=== PATIENT | male | born 1955 | race Caucasian/White ===

== ENCOUNTER 2016-11-21 10:18 | Inpatient (IN) ==
[2016-11-21] MEDS ORDERED: MYLANTA/LIDO VISC 2:1 300 ML BOTTLE SWISH/SPIT PRN (10:23)
[2016-11-21] MEDS ORDERED: LACTULOSE 20 GM/30 ML UDCUP PO PRN (10:23)
[2016-11-21] MEDS ORDERED: guaiFENesin 200 MG/10 ML UDCUP PO PRN (10:23)
[2016-11-21] MEDS ORDERED: ALUMINUM/MAGNES/SIMETH MAX STR 30 ML UDCUP PO PRN (10:23)
[2016-11-21] MEDS ORDERED: BENZTROPINE 2 MG/2 ML AMP IV PRN (10:23)
[2016-11-21] MEDS ORDERED: chlorproMAZINE INJ 25 MG in SODIUM CHLORIDE 0.9% 100 ML IV PRN (10:23)
[2016-11-21] MEDS ORDERED: chlorproMAZINE INJ 50 MG in SODIUM CHLORIDE 0.9% 100 ML IV PRN (10:23)
[2016-11-21] MEDS ORDERED: MYLANTA/LIDO VISC 2:1 300 ML BOTTLE SWISH/SWAL PRN (10:23)
[2016-11-21] MEDS ORDERED: ACETAMINOPHEN 325 MG TABLET PO PRN (10:23)
[2016-11-21] MEDS ORDERED: traMADol 50 MG TABLET PO PRN (10:23)
[2016-11-21] MEDS ORDERED: diphenhydrAMINE CAP 25 MG CAPSULE PO PRN (10:23)
[2016-11-21] MEDS ORDERED: LOPERAMIDE 2 MG CAPSULE PO PRN ×2 (10:23)
[2016-11-21] MEDS ORDERED: PROMETHAZINE INJ 25 MG in SODIUM CHLORIDE 0.9% 50 ML IV PRN (10:23)
[2016-11-21] MEDS ORDERED: MAGNESIUM HYDROXIDE SUSP 30 ML UDCUP PO PRN (10:23)
[2016-11-21] MEDS ORDERED: chlorproMAZINE 25 MG TABLET PO PRN (10:23)
[2016-11-21 11:11] LABS: Basophils % 0.4 % (0.0-0.8); Eosinophils % 0.2 % (0.00-10.9); Hematocrit 44.7 VOL% (42.0-52.0); Hemoglobin 15.1 GM/DL (14.0-18.0); Immature Granulocytes % 0.7 %; Immature Granulocytes Absolute 0.06 #; Lymphocytes # 0.1 10*3/uL (1.4-4.0); Lymphocytes % 1.2 % (21.2-54.2); Mean Corpuscular HGB Conc 33.8 GM/DL (32-36); Mean Corpuscular Hemoglobin 30 PG (27-34); Mean Corpuscular Volume 88.7 FL (87-102); Mean Platelet Volume 8.6 FL (9.6-12.0); Monocytes # 0.4 10*3/uL (0.11-0.8); Monocytes % 4.7 % (1.7-12.7); Neutrophils # 7.7 10*3/uL (1.4-7.4); Neutrophils % 92.8 % (38.7-73.9); Platelet Count 347 10*3/uL (130-400); Red Blood Count 5.04 10*6/uL (3.8-5.5); Red Cell Distribution Width 12.8 % (9.3-17.3); White Blood Count 8.3 10*3/uL (4.5-13.71)
[2016-11-21 11:22] LABS: INR 1.1
[2016-11-21] MEDS ORDERED: SODIUM CHLORIDE 0.9% 1,000 ML IV ONE (11:36)
[2016-11-21 11:46] LABS: Band Neutrophils 16 % (0-10); Eosinophils 1 % (0-10); Hypochromasia Slight; Lymphocytes 1 % (20-55); Metamyelocytes 1 %; Microcytosis 1+; Segmented Neutrophils 78 % (50-85); Total Cells Counted 100
[2016-11-21 11:47] LABS: Platelet Estimate Normal
[2016-11-21 11:59] LABS: Bilirubin,Total 1.5 MG/DL (0.2-1.0); Calcium 8.9 MG/DL (8.5-10.1); Magnesium 2.8 MG/DL (1.8-2.4); Potassium 5.3 MMOL/L (3.5-5.1); Total Protein 5.1 G/DL (6.4-8.3); Uric Acid 8.5 MG/DL (3.5-7.2)
[2016-11-21] MEDS: PANTOPRAZOLE 40 MG VIAL IV SCH (12:29)
[2016-11-21] MEDS ORDERED: FOSAPREPITANT 150 MG in SODIUM CHLORIDE 0.9% 100 ML IV ONE (12:55)
[2016-11-21] MEDS ORDERED: DEXAMETHASONE INJ 20 MG in SODIUM CHLORIDE 0.9% 50 ML IV ONE (12:55)
[2016-11-21] MEDS ORDERED: FAMOTIDINE 20 MG/2 ML VIAL IV ONE (13:00)
[2016-11-21] MEDS ORDERED: diphenhydrAMINE 50 MG/1 ML VIAL IV ONE (13:00)
[2016-11-21] MEDS ORDERED: PALONOSETRON 0.25 MG/5 ML VIAL IV ONE (13:00)
[2016-11-21] MEDS ORDERED: riTUXimab 750 MG in SODIUM CHLORIDE 0.9% 675 ML IV ONE (13:30)
[2016-11-21] MEDS: ALLOPURINOL 300 MG TABLET PO SCH (14:21)
[2016-11-21] MEDS ORDERED: riTUXimab 500 MG, riTUXimab 250 MG in SODIUM CHLORIDE 0.9% 675 ML IV ONE (16:00)
--- NOTE | 2016-11-21 17:03 | Oncology History&Physical ---
Assessment and Plan (1) Lymphoma Status: Acute Assessment and plan: Mr. Gonzalez is quite ill. We will aggressively rehydrate him and begin Rituxan today. His also severely malnourished and we will likely start peripheral nutrition tomorrow. I will try to get a PICC line placed and ask interventional radiology for paracentesis. Once he appears to be better hydrated we will start cytotoxic chemotherapy. I hope to have this going in the next 2 days. I had a length discussion with his and explained to them that I anticipate he'll be in the hospital for quite some time. His prognosis is guarded at this time but he has stated that he would like to be DNR if he worsens. Current Visit: Yes (2) Ascites Status: Acute Current Visit: Yes (3) Peritoneal carcinomatosis Status: Acute Current Visit: Yes (4) Lung metastases Status: Acute Current Visit: Yes (5) Malnutrition Status: Acute Current Visit: Yes History of Present Illness History of present illness: Mr. Gonzalez is a 61 year old male with newly diagnosed aggressive lymphoma with diffuse involvement based on his PET scan done yesterday and rapid deterioration over the last 2 weeks. He is taking in very little by mouth and is severely dehydrated. I admitted him from clinic today to begin chemotherapy due to his rapid deterioration. We are also doing aggressive rehydration. He is getting Rituxan today and I will likely hold off on cytotoxic chemotherapy for the next day or 2 while we improve his hydration status. His abdomen is severely distended. There is some ascites seen on his PET scan there is also diffuse peritoneal and omental involvement with tumor. I've had a lengthy discussion with Mr. Gonzalez and his and they're aware of his grave situation. He does not want to be placed on life support if it comes of that but he is willing to see if chemotherapy can turn around his current situation. Home Medications Medication Instructions Recorded Confirmed Type Aspirin EC Tab 81 mg PO BEDTIME 11/03/16 11/21/16 History Dexlansoprazole [Dexilant] 60 mg PO BEDTIME 11/03/16 11/21/16 History Finasteride [Proscar] 5 mg PO BEDTIME 11/03/16 11/21/16 History Nebivolol [Bystolic] 5 mg PO BEDTIME 11/03/16 11/21/16 History Tamsulosin [Flomax] 0.4 mg PO BEDTIME 11/03/16 11/21/16 History Ondansetron HCl [Zofran Tab] 8 mg PO Q8HR PRN 11/21/16 11/21/16 History Ondansetron Odt Tab [Zofran Odt] 4 mg PO Q6H PRN 11/21/16 11/21/16 History Promethazine Tab [Phenergan Tab] 25 mg PO Q6H PRN 11/21/16 11/21/16 History traMADol TAB [Ultram] 50 mg PO Q6H PRN 11/21/16 11/21/16 History Allergies Allergy/AdvReac Type Severity Reaction Status Date / Time No Known Allergies Allergy Verified 11/19/16 09:34 Medical,Surgical,& Family Hx - Medical History Cardio: History of: Hypertension Psychological: No history of: Anxiety Disorders, Bipolar Disorder, Depression, Schizophrenia Neurology: History of: Vertigo No history of: Seizures HEENT: History of: Eye Problem (Wears glasses) Genitourinary: History of: Kidney Stones, Prostate Problems (Enlarged prostate) Gastrointestinal: History of: GERD, Liver Problems (Fatty Liver), GI Problems ( Abdominal pain; Abnormal CT scan) Musculoskeletal: History of: Degenerative Disk Disease (L1 L2) Reproductive: No histroy: Reproductive Cancer Other: History of: Cancer (RIGHT kidney) No history of: Anesthesia Reactions - Surgical History Cardiac Surgeries: Patient Denies: Cardiac Catheterization Thoracic Surgeries: Surgical HX of;: Nephrectomy (RIGHT partial 5 years ago at [facility]) HEENT Surgeries: Patient denies: Eye Surgery, Tonsilectomy & Adenoidectomy Abdominal Surgeries: Surgical HX of: Abdominal Surgery, Colonoscopy, EGD, Hernia Repair ([place] 1978) Patient denies: Appendectomy, Cholecystectomy Reproductive Surgeries: Surgical HX of;: Genitourinary Surgery Orthopedic Surgeries: Patient denies;: Orthopedic Surgery - Family History Family History: Reports;: Family Cancer (Father (prostate) Son (testicular)), Family Hypertension (MOther), Family Stroke (Mother) Denies;: Family Anesthesia Reaction, Family Diabetes, Family Heart Disease, Family Psychiatric Problems - Social History Smoking Status: Never smoker - Constitutional Constitutional: Present: fatigue, weight loss - Gastrointestinal Gastrointestinal: Present: abdominal pain, nausea Exam - Constitutional Vitals: Period Temp Pulse Resp BP Sys/Lutz Pulse Ox Last 24 Hr 96.1 F-96.2 F 82-85 20-20 91-107/56-68 90-93 General appearance: mild distress - Head Head Exam: Present: normocephalic, atraumatic - Eye Eye Exam: Present: EOMI Pupils: Present: PERRL - ENT ENT exam: Present: normal exam, normal oropharynx - Neck Neck exam: Absent: lymphadenopathy, thyromegaly - Respiratory Respiratory exam: Present: CTAB. Absent: wheezes - Cardiovascular Cardiovascular exam: Present: RRR. Absent: JVD, systolic murmur - GI/Abdominal GI/Abdominal exam: Present: ascites, distended, soft. Absent: firm, guarding, mass - Neurological Exam Neurological exam: Present: alert, oriented X3 - Psychiatric Psychiatric exam: Present: normal affect, normal mood - Skin Skin exam: Present: warm, dry Results - Labs CBC & BMP: 11/21/16 11:02 11/21/16 11:02 Lab Results: I have reviewed the past 24 hour labs
[2016-11-21] MEDS: MORPHINE 2 MG/1 ML SYRINGE IV PRN (20:33)
[2016-11-21] MEDS: DEXTROSE 5% NACL 0.45% 1,000 ML IV SCH (20:34)
[2016-11-22] MEDS: MORPHINE 2 MG/1 ML SYRINGE IV PRN ×5 (01:10→23:08)
[2016-11-22] MEDS: DEXTROSE 5% NACL 0.45% 1,000 ML IV SCH ×4 (01:11→18:20)
[2016-11-22 05:33] LABS: Basophils % 0.1 % (0.0-0.8); Hematocrit 40.2 VOL% (42.0-52.0); Hemoglobin 13.4 GM/DL (14.0-18.0); Immature Granulocytes % 0.9 %; Immature Granulocytes Absolute 0.07 #; Lymphocytes # 0.1 10*3/uL (1.4-4.0); Lymphocytes % 0.9 % (21.2-54.2); Mean Corpuscular HGB Conc 33.3 GM/DL (32-36); Mean Corpuscular Hemoglobin 30 PG (27-34); Mean Corpuscular Volume 89.1 FL (87-102); Monocytes # 0.3 10*3/uL (0.11-0.8); Neutrophils # 7.6 10*3/uL (1.4-7.4); Neutrophils % 94.1 % (38.7-73.9); Platelet Count 307 10*3/uL (130-400); Red Blood Count 4.51 10*6/uL (3.8-5.5); Red Cell Distribution Width 12.8 % (9.3-17.3); White Blood Count 8.1 10*3/uL (4.5-13.71)
[2016-11-22 06:02] LABS: Band Neutrophils 18 % (0-10); Lymphocytes 1 % (20-55); Segmented Neutrophils 76 % (50-85); Total Cells Counted 100
[2016-11-22 06:03] LABS: Hypochromasia 1+; Microcytosis 1+
[2016-11-22 06:04] LABS: Platelet Estimate Normal
[2016-11-22 06:05] LABS: Albumin 1.8 G/DL (3.4-5.0); Bilirubin,Total 1.6 MG/DL (0.2-1.0); Calcium 8.1 MG/DL (8.5-10.1); Magnesium 2.6 MG/DL (1.8-2.4); Osmolality,Calculated 281.8 MOS/KG (273-304); Potassium 5.2 MMOL/L (3.5-5.1); Total Protein 4.6 G/DL (6.4-8.3); Uric Acid 6.4 MG/DL (3.5-7.2)
[2016-11-22] MEDS ORDERED: traMADol 50 MG TABLET PO PRN (07:31)
--- NOTE | 2016-11-22 07:35 | Oncology Progress Note ---
Assessment and Plan (1) Lymphoma Status: Acute Current Visit: Yes (2) Ascites Status: Acute Current Visit: Yes (3) Peritoneal carcinomatosis Status: Acute Current Visit: Yes (4) Lung metastases Status: Acute Current Visit: Yes (5) Malnutrition Status: Acute Current Visit: Yes Oncology Subjective PN Interval history: He is looking much better today with aggressive rehydration. He states he feels better also. He tolerated his infusion of Rituxan last night with no reaction. His chemistry panel this morning showed no evidence of tumor lysis syndrome. We will have a PICC line placed today and begin peripheral nutrition. I'll also ask radiology to see if there is enough fluid for paracentesis. Given his carcinomatosis I feel that most of his abdominal symptoms are related to tumor but if there is enough fluid to drain it may provide some relief in his abdomen. I would likely begin cytotoxic chemotherapy tomorrow if he shows further improvement today. I'm unsure this time which exact drugs I will give but we'll likely give him a variation of CHOP. I'll recheck a chemistry panel later today to look for early signs of tumor lysis. I encouraged him to ambulate some with assistance. I do not think he is at a place for physical therapy yet. I'll continue checking daily labs with uric acid. His condition is still tenuous but improved. On exam today he has no peripheral edema. His abdomen is distended but I cannot palpate a definitive fluid wave. Lungs are clear. He is alert known to person place and time. Exam - Constitutional Vitals: Period Temp Pulse Resp BP Sys/Lutz Pulse Ox Last 24 Hr 96.1 F-97.7 F 79-98 18-20 91-123/56-85 90-96 Results - Labs CBC & BMP: 11/22/16 04:45 11/22/16 04:45
[2016-11-22] MEDS ORDERED: TAMSULOSIN 0.4 MG CAPSULE PO SCH (09:00)
[2016-11-22] MEDS: ALLOPURINOL 300 MG TABLET PO SCH (10:03)
[2016-11-22] MEDS: PANTOPRAZOLE 40 MG VIAL IV SCH (10:05)
[2016-11-22 16:17] LABS: Calcium 7.9 MG/DL (8.5-10.1); Osmolality,Calculated 279.8 MOS/KG (273-304); Potassium 4.7 MMOL/L (3.5-5.1)
--- NOTE | 2016-11-22 16:49 | Post Interventional Procedure ---
Pre-op diagnosis: lymphoma Post-op diagnosis: same Procedure: PICC placement and paracentesis Contrast: none Flouroscopy: 0.1 min Radiologist: Nicko Early Anesthesia: local Specimens: none sent Estimated blood loss: minimal (2 mL) Complications: none Condition: stable Description/Findings: Left arm basilic vein 5 Mohawk dual lumen power PICC line placed. A catheter is ready for use. 2500 mL of dark serous colored fluid was aspirated via a left lower quadrant approach. Assessment and Plan - Time spent with patient Time spent with patient: Greater than 30 minutes (1) Ascites Problem details: metastatic lymphoma with peritoneal disease Status: Acute Assessment and plan: drained 2.5 L today Current Visit: Yes (2) Lymphoma Problem details: Needs IV access for chemo treatment Status: Acute Assessment and plan: PICC line placed Current Visit: Yes
--- NOTE | 2016-11-22 16:57 | Ultrasound Report ---
IR PICC line insertion, US guide vascular access IR PICC Placement Peripherally-inserted central catheter (PICC) placement using ultrasound and fluoroscopic guidance Ultrasound of the left upper extremity Clinical Information: 61-year-old male with history of lymphoma with peritoneal metastatic disease. Patient is admitted for IV chemotherapy administration and needs central venous access. PICC line is requested. Physician: Dr. Early Procedure: The patient was advised of the benefits, risks, and alternatives of the procedure and informed consent was obtained. A time out was performed with verification of the patient's name, MRN, site of procedure, and type of procedure to be performed. The patient was positioned in the supine position on the angiographic table. The site was prepped and draped in the usual sterile fashion. Additionally, maximal sterile barrier technique was employed for the procedure. 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 Ultrasound examination of the left arm demonstrates patent and compressible brachial and basilic veins. The left arm was prepped and draped in the usual sterile fashion. The left basilic vein was again identified. Using ultrasound guidance, a 21 gauge needle was used to access the vein. A permanent ultrasound recording of vascular access was obtained for the patient's record. A 0.018" cope wire was then advanced into the vein. The needle was exchanged for a 5 Canadian peel-away sheath. A 5 Canadian double lumen Bard Solo PICC catheter was measured and trimmed to the 49 cm gm. The PICC line was advanced through the sheath and into the central circulation. The catheter tip was positioned at the cavo-atrial junction. The peel-away sheath was then removed. At the conclusion of the procedure, the catheter was secured in place using a Stat-Lock device. A sterile dressing was applied. The lumens aspirate and flush freely. The catheter is ready for immediate use. The patient tolerated the procedure well and was returned to the PRU in stable condition. EBL: < 5 mL. Complications: None. Fluoroscopy time: 0.1 minutes Conclusion: Successful placement of a 5 Canadian double lumen Bard Solo power injectable PICC via the left basilic vein. The catheter is ready for immediate use. PROCEDURE INTERPRETED AT [facility] DEPARTMENT OF RADIOLOGY Final Report Signed by: Nicko Early
--- NOTE | 2016-11-22 18:08 | Ultrasound Report ---
Exam: Ultrasound-guided paracentesis Clinical history: ascites. Physician: Dr. Early. Procedure: Informed consent was obtained prior to procedure. A formal timeout was performed. Maximum sterile barrier technique was used. The left lower quadrant was prepped and draped in sterile fashion. Under sonographic guidance, a 6 Romansh safety centesis catheter and needle were advanced into the ascites using trocar technique. A captured sonographic image documents needle position. The needle was removed. Through the catheter, we obtained a total of 2500 cc of straw-colored ascites. No additional fluid could be obtained. Therefore, the catheter was removed. A bandage was placed at the puncture site. The patient tolerated the procedure well. Complications: None. Estimated blood loss: Less than 5 mL. Impression: Technically successful ultrasound guided paracentesis. PROCEDURE INTERPRETED AT [facility] DEPARTMENT OF RADIOLOGY Final Report Signed by: Nicko Early
[2016-11-22] MEDS: AMINO ACIDS/DEXT/LYTES 4.25-5% 2,000 ML IV SCH (18:10)
[2016-11-23] MEDS: TAMSULOSIN 0.4 MG CAPSULE PO SCH ×2 (03:50→20:46)
[2016-11-23] MEDS: MORPHINE 2 MG/1 ML SYRINGE IV PRN ×3 (04:31→23:05)
[2016-11-23] MEDS ORDERED: CYCLOPHOSPHAMIDE IV ONE (06:11)
[2016-11-23] MEDS ORDERED: SODIUM CHLORIDE 0.9% IV ONE (06:11)
[2016-11-23] MEDS ORDERED: DOXORUBICIN IV ONE (06:11)
[2016-11-23] MEDS ORDERED: DEXAMETHASONE INJ 10 MG in SODIUM CHLORIDE 0.9% 50 ML IV ONE ×2 (06:11→13:30)
[2016-11-23] MEDS ORDERED: PALONOSETRON 0.25 MG/5 ML VIAL IV ONE (06:11)
--- NOTE | 2016-11-23 06:19 | Oncology Progress Note ---
Assessment and Plan (1) Lymphoma Problem details: Needs IV access for chemo treatment Status: Acute Current Visit: Yes (2) Ascites Problem details: metastatic lymphoma with peritoneal disease Status: Acute Current Visit: Yes (3) Peritoneal carcinomatosis Status: Acute Current Visit: Yes (4) Lung metastases Status: Acute Current Visit: Yes (5) Malnutrition Status: Acute Current Visit: Yes Oncology Subjective PN Interval history: Mr. Gonzalez is a 61-year-old white male with newly diagnosed aggressive lymphoma with diffuse involvement. He has significant peritoneal and omental malignant involvement causing very little by mouth intake and significant abdominal discomfort. He received a dose of Rituxan 2 days ago. He tolerated this well. He shows no evidence of tumor lysis syndrome at this time. Yesterday he underwent 2-1/2 L paracentesis with some relief. He also had a PICC line placed to begin parenteral nutrition. We will begin chemotherapy today with Cytoxan, Adriamycin, and so a Medrol. I will reduce his chemotherapy by 25% for this first cycle. I'm using Solu-Medrol instead of prednisone due to his likely decreased absorption from his diffuse gastrointestinal tumor involvement. I'll go ahead and consult physical therapy even though I do not think he is in shape at this point to handle much aggressive therapy. Also place him on low-dose Lovenox to prevent DVTs. He will likely need to remain in the hospital for a few days after receiving chemotherapy to be certain that he does well. I'll be out for the next 3 days in my partner will follow him to the weekend. I will resume his care on Sunday and we can likely begin discharge planning at that time. I encouraged him to continue to take in food by mouth if he is able. Also encouraged him to sit in a chair and ambulate around the room his much as possible. Exam - Constitutional Vitals: Period Temp Pulse Resp BP Sys/Lutz Pulse Ox Last 24 Hr 96.5 F-97.2 F 87-91 18-22 91-120/64-93 90-93 General appearance: normal weight, no acute distress - Head Head Exam: Present: normocephalic, atraumatic - ENT ENT exam: Present: normal exam, normal oropharynx - Neck Neck exam: Absent: lymphadenopathy, thyromegaly - Respiratory Respiratory exam: Present: CTAB. Absent: wheezes - Cardiovascular Cardiovascular exam: Present: RRR. Absent: JVD, systolic murmur - GI/Abdominal GI/Abdominal exam: Present: distended, soft. Absent: ascites - Neurological Exam Neurological exam: Present: alert, oriented X3 Results - Labs CBC & BMP: 11/22/16 04:45 11/22/16 15:41 Lab Results: I have reviewed the past 24 hour labs
[2016-11-23 08:55] LABS: Basophils % 0.3 % (0.0-0.8); Eosinophils % 0.1 % (0.00-10.9); Hematocrit 42.7 VOL% (42.0-52.0); Hemoglobin 14.1 GM/DL (14.0-18.0); Immature Granulocytes % 1.2 %; Immature Granulocytes Absolute 0.11 #; Lymphocytes # 0.1 10*3/uL (1.4-4.0); Lymphocytes % 1.2 % (21.2-54.2); Mean Corpuscular Hemoglobin 30 PG (27-34); Mean Corpuscular Volume 90.1 FL (87-102); Mean Platelet Volume 8.7 FL (9.6-12.0); Monocytes # 0.3 10*3/uL (0.11-0.8); Monocytes % 3.6 % (1.7-12.7); NRBC # 0.02 10*3/uL; Neutrophils # 8.6 10*3/uL (1.4-7.4); Neutrophils % 93.6 % (38.7-73.9); Platelet Count 251 10*3/uL (130-400); Red Blood Count 4.74 10*6/uL (3.8-5.5); Red Cell Distribution Width 12.9 % (9.3-17.3); White Blood Count 9.2 10*3/uL (4.5-13.71)
[2016-11-23 09:21] LABS: Band Neutrophils 20 % (0-10); Eosinophils 2 % (0-10); Lymphocytes 1 % (20-55); Nucleated Red Blood Cells 1 (0-5); Segmented Neutrophils 75 % (50-85); Total Cells Counted 100
[2016-11-23 09:22] LABS: Albumin 1.6 G/DL (3.4-5.0); Bilirubin,Total 1.1 MG/DL (0.2-1.0); Calcium 8.2 MG/DL (8.5-10.1); Hypochromasia Slight; Osmolality,Calculated 277.8 MOS/KG (273-304); Platelet Estimate Adequate; Potassium 4.8 MMOL/L (3.5-5.1); Total Protein 4.3 G/DL (6.4-8.3)
[2016-11-23] MEDS: PANTOPRAZOLE 40 MG VIAL IV SCH (10:40)
[2016-11-23] MEDS: methylPREDNISolone SOD SUC 40 MG/1 ML VIAL IV SCH ×2 (10:42→20:29)
[2016-11-23] MEDS: ENOXAPARIN 30 MG/0.3 ML SYRINGE SUBCUT SCH (10:45)
[2016-11-23] MEDS: ALLOPURINOL 300 MG TABLET PO SCH (10:46)
[2016-11-23] MEDS ORDERED: DEXAMETHASONE 10 MG/1 ML VIAL IV SCH (14:00)
[2016-11-23] MEDS ORDERED: DEXAMETHASONE 10 MG/1 ML VIAL IV ONE (14:30)
[2016-11-23] MEDS: AMINO ACIDS/DEXT/LYTES 4.25-5% 2,000 ML IV SCH (18:51)
[2016-11-23] MEDS: DEXTROSE 5% NACL 0.45% 1,000 ML IV SCH (18:51)
[2016-11-23] MEDS: TEMAZEPAM 7.5 MG CAPSULE PO PRN (20:46)
[2016-11-23] MEDS: ONDANSETRON 4 MG/2 ML VIAL IV PRN (23:17)
[2016-11-24 05:13] LABS: Basophils % 0.1 % (0.0-0.8); Hematocrit 35.7 VOL% (42.0-52.0); Hemoglobin 11.7 GM/DL (14.0-18.0); Immature Granulocytes % 0.7 %; Immature Granulocytes Absolute 0.05 #; Lymphocytes % 0.6 % (21.2-54.2); Mean Corpuscular HGB Conc 32.8 GM/DL (32-36); Mean Corpuscular Hemoglobin 30 PG (27-34); Mean Corpuscular Volume 92.5 FL (87-102); Mean Platelet Volume 9.2 FL (9.6-12.0); Monocytes # 0.2 10*3/uL (0.11-0.8); Monocytes % 2.9 % (1.7-12.7); NRBC # 0.02 10*3/uL; Neutrophils # 6.6 10*3/uL (1.4-7.4); Neutrophils % 95.7 % (38.7-73.9); Platelet Count 211 10*3/uL (130-400); Red Blood Count 3.86 10*6/uL (3.8-5.5); Red Cell Distribution Width 13.1 % (9.3-17.3); White Blood Count 6.9 10*3/uL (4.5-13.71)
[2016-11-24 05:34] LABS: Band Neutrophils 19 % (0-10); Lymphocytes 1 % (20-55); Nucleated Red Blood Cells 1 (0-5); Segmented Neutrophils 77 % (50-85); Total Cells Counted 100
[2016-11-24 05:35] LABS: Hypochromasia Slight; Platelet Estimate Adequate
[2016-11-24 06:26] LABS: Albumin 1.2 G/DL (3.4-5.0); Bilirubin,Total 1.2 MG/DL (0.2-1.0); Calcium 8.2 MG/DL (8.5-10.1); Osmolality,Calculated 275.8 MOS/KG (273-304); Total Protein 3.8 G/DL (6.4-8.3)
[2016-11-24 06:29] LABS: Potassium 7.9 MMOL/L (3.5-5.1)
[2016-11-24] MEDS ORDERED: ALBUTEROL 2.5 MG/3 ML NEB RESP TX ONE (06:37)
[2016-11-24] MEDS ORDERED: SODIUM BICARBONATE 50 MEQ/50 ML VIAL IV ONE (06:44)
[2016-11-24] MEDS ORDERED: CALCIUM CHLORIDE 1,000 MG/10 ML SYRINGE IV ONE (06:45)
--- NOTE | 2016-11-24 06:50 | EKG Report ---
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
[2016-11-24] MEDS: methylPREDNISolone SOD SUC 40 MG/1 ML VIAL IV SCH ×2 (06:57→18:32)
[2016-11-24] MEDS ORDERED: INSULIN REGULAR IV SCH (07:00)
[2016-11-24] MEDS ORDERED: SODIUM BICARB IV SCH (07:00)
[2016-11-24] MEDS ORDERED: DEXTROSE 5% IV SCH (07:00)
[2016-11-24] MEDS: ENOXAPARIN 30 MG/0.3 ML SYRINGE SUBCUT SCH (07:14)
[2016-11-24] MEDS ORDERED: AMINO ACIDS/DEXT/LYTES 4.25-5% 1,000 ML IV SCH (08:00)
[2016-11-24 08:06] LABS: Albumin 1.5 G/DL (3.4-5.0); Bilirubin,Total 1.4 MG/DL (0.2-1.0); Calcium 9.2 MG/DL (8.5-10.1); Osmolality,Calculated 284.5 MOS/KG (273-304); Potassium 4.7 MMOL/L (3.5-5.1); Total Protein 4.2 G/DL (6.4-8.3)
--- NOTE | 2016-11-24 08:07 | Oncology Progress Note ---
Oncology Subjective PN Interval history: This is a patient with newly diagnosed widely disseminated lymphoma. He is status post rituximab treatment earlier this week. He received Cytoxan and Adriamycin and Solu-Medrol yesterday. His labs were drawn from the PICC line which showed erroneous glucose and potassium levels. These were related to the TPN infusion. Repeat levels are pending his EKG was unremarkable and a peripheral blood glucose was 124. He has abdominal distention which I think is somewhat worse. Bowel sounds are hypoactive he is actually had one episode of vomiting. He reports mild flatus but no recent bowel movement. I am checking an abdominal x-ray and them seriously considering nasogastric decompression. Exam - Constitutional Vitals: Period Temp Pulse Resp BP Sys/Lutz Pulse Ox Last 24 Hr 96.4 F-97.2 F 80-98 18-20 112-118/63-77 92-99 Results - Labs CBC & BMP: 11/24/16 04:00 11/24/16 04:00
[2016-11-24] MEDS ORDERED: GLUCAGON 1 MG VIAL IM PRN (08:09)
[2016-11-24] MEDS ORDERED: DEXTROSE 50% 25 GM/50 ML VIAL IV PRN (08:09)
--- NOTE | 2016-11-24 08:44 | XRay Report ---
XR abdomen 1V Indication: Ileus. Abdomen 3 views: Gas-distended small bowel stacked upon itself throughout the central and left abdomen, it is not dilated. Stool and gas is shown the colon. No free air. Impression: Severe ileus. Early SBO possible. PROCEDURE INTERPRETED AT [facility] DEPARTMENT OF RADIOLOGY Final Report Signed by: Emigdio Harmon M.D.
[2016-11-24] MEDS: MORPHINE 2 MG/1 ML SYRINGE IV PRN (10:55)
[2016-11-24] MEDS: PANTOPRAZOLE 40 MG VIAL IV SCH (11:12)
[2016-11-24] MEDS: ALLOPURINOL 300 MG TABLET PO SCH (11:13)
--- NOTE | 2016-11-24 11:23 | XRay Report ---
XR chest 1V portable Indication: NG tube placement. Chest one view: Compromise view the chest and abdomen shows an NG tube extending into the mid stomach. Impression: NG tube position as described. PROCEDURE INTERPRETED AT [facility] DEPARTMENT OF RADIOLOGY Final Report Signed by: Emigdio Harmon M.D.
[2016-11-24] MEDS ORDERED: ENOXAPARIN 40 MG/0.4 ML SYRINGE SUBCUT SCH ×2 (14:30→15:00)
[2016-11-24] MEDS: INSULIN REGULAR 100 UNIT/ML SUBCUT SCH (17:46)
[2016-11-24] MEDS: TAMSULOSIN 0.4 MG CAPSULE PO SCH (20:36)
[2016-11-24] MEDS: AMINO ACIDS/DEXT/LYTES 4.25-5% 2,000 ML IV SCH (22:09)
[2016-11-25] MEDS: ONDANSETRON 4 MG/2 ML VIAL IV PRN (03:55)
[2016-11-25] MEDS: methylPREDNISolone SOD SUC 40 MG/1 ML VIAL IV SCH ×2 (06:28→17:30)
[2016-11-25 06:42] LABS: Hemoglobin 11.9 GM/DL (14.0-18.0); Immature Granulocytes % 0.9 %; Immature Granulocytes Absolute 0.04 #; Lymphocytes # 0.1 10*3/uL (1.4-4.0); Lymphocytes % 1.4 % (21.2-54.2); Mean Corpuscular Hemoglobin 29 PG (27-34); Mean Corpuscular Volume 86.4 FL (87-102); Mean Platelet Volume 9.2 FL (9.6-12.0); Monocytes # 0.2 10*3/uL (0.11-0.8); Monocytes % 3.9 % (1.7-12.7); Neutrophils # 4.1 10*3/uL (1.4-7.4); Neutrophils % 93.8 % (38.7-73.9); Platelet Count 227 10*3/uL (130-400); Red Blood Count 4.05 10*6/uL (3.8-5.5); Red Cell Distribution Width 12.8 % (9.3-17.3); White Blood Count 4.4 10*3/uL (4.5-13.71)
[2016-11-25 07:12] LABS: Albumin 1.4 G/DL (3.4-5.0); Bilirubin,Total 1.5 MG/DL (0.2-1.0); Osmolality,Calculated 283.8 MOS/KG (273-304); Potassium 5.1 MMOL/L (3.5-5.1); Total Protein 4.3 G/DL (6.4-8.3)
[2016-11-25 07:38] LABS: Band Neutrophils 25 % (0-10); Burr Cells 1+; Hypochromasia 1+; Macrocytosis 1+; Nucleated Red Blood Cells 1 (0-5); Platelet Estimate Adequate; Segmented Neutrophils 71 % (50-85); Total Cells Counted 100
[2016-11-25] MEDS: ENOXAPARIN 40 MG/0.4 ML SYRINGE SUBCUT SCH (08:51)
[2016-11-25] MEDS: PANTOPRAZOLE 40 MG VIAL IV SCH (08:51)
[2016-11-25] MEDS: ALLOPURINOL 300 MG TABLET PO SCH ×2 (08:52→10:30)
[2016-11-25] MEDS: INSULIN REGULAR 100 UNIT/ML SUBCUT SCH ×2 (08:52→17:26)
--- NOTE | 2016-11-25 09:59 | Oncology Progress Note ---
Oncology Subjective PN Interval history: Patient stable overnight. Abdomen is less distended with initial NG decompression. He continues to report flatus regularly but no bowel movement. Bowel sounds are positive primarily in the right lower quadrant. No tenderness or guarding. I will clamp his NG briefly today. Continue with TPN. 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
[2016-11-25] MEDS ORDERED: ELECTROLYTE CONCENTRATE 20 ML, TRACE ELEMENTS (5) 1 ML, MULTIVITAMIN INJ 10 ML in AMINO... IV SCH (17:00)
[2016-11-25] MEDS: TAMSULOSIN 0.4 MG CAPSULE PO SCH (21:03)
--- NOTE | 2016-11-26 06:32 | Oncology Progress Note ---
Oncology Subjective PN Interval history: Patient has tolerated 1 hour clamped in GI multiple times. He still seems reluctant to attempt much oral intake. No bowel movement but continued flatus. Positive bowel sounds with a nontender abdomen. 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 He is not febrile. Today's labs are pending. I have encouraged additional oral intake specifically Jell-O at this point. We are going to try 2 hours on and off clamp NG today. Exam - Constitutional Vitals: Period Temp Pulse Resp BP Sys/Lutz Pulse Ox Last 24 Hr 97 F-98 F 80-89 18-20 103-130/62-79 90-95 Results - Labs CBC & BMP: 11/25/16 05:44 11/25/16 05:44
[2016-11-26] MEDS: methylPREDNISolone SOD SUC 40 MG/1 ML VIAL IV SCH ×2 (06:35→19:13)
[2016-11-26 07:20] LABS: Hematocrit 33.9 VOL% (42.0-52.0); Hemoglobin 11.6 GM/DL (14.0-18.0); Immature Granulocytes % 1.4 %; Immature Granulocytes Absolute 0.03 #; Lymphocytes # 0.1 10*3/uL (1.4-4.0); Lymphocytes % 3.3 % (21.2-54.2); Mean Corpuscular HGB Conc 34.2 GM/DL (32-36); Mean Corpuscular Hemoglobin 30 PG (27-34); Mean Corpuscular Volume 86.9 FL (87-102); Monocytes # 0.1 10*3/uL (0.11-0.8); Monocytes % 4.7 % (1.7-12.7); Neutrophils # 1.9 10*3/uL (1.4-7.4); Neutrophils % 90.6 % (38.7-73.9); Platelet Count 185 10*3/uL (130-400); Red Cell Distribution Width 12.8 % (9.3-17.3); White Blood Count 2.1 10*3/uL (4.5-13.71)
[2016-11-26 08:00] LABS: Albumin 1.5 G/DL (3.4-5.0); Bilirubin,Total 1.3 MG/DL (0.2-1.0); Calcium 7.7 MG/DL (8.5-10.1); Osmolality,Calculated 286.5 MOS/KG (273-304); Potassium 4.8 MMOL/L (3.5-5.1); Total Protein 4.3 G/DL (6.4-8.3)
[2016-11-26] MEDS ORDERED: GLUCAGON 1 MG VIAL IM PRN (08:21)
[2016-11-26] MEDS: ENOXAPARIN 40 MG/0.4 ML SYRINGE SUBCUT SCH (08:56)
[2016-11-26] MEDS: PANTOPRAZOLE 40 MG VIAL IV SCH (08:57)
[2016-11-26] MEDS: ALLOPURINOL 300 MG TABLET PO SCH (09:01)
[2016-11-26 10:09] LABS: Band Neutrophils 2 % (0-10); Hypochromasia 2+; Lymphocytes 4 % (20-55); Microcytosis 1+; Platelet Estimate Adequate; Segmented Neutrophils 92 % (50-85); Total Cells Counted 100
[2016-11-26] MEDS ORDERED: PHENOL 1.4% THROAT SPRAY 177 ML BOTTLE PO PRN (10:49)
[2016-11-26] MEDS: INSULIN REGULAR 100 UNIT/ML SUBCUT SCH ×2 (13:12→17:46)
[2016-11-26] MEDS ORDERED: INSULIN REGULAR 100 UNIT/ML SUBCUT SCH (16:30)
[2016-11-26] MEDS: ELECTROLYTE CONCENTRATE 40 ML, TRACE ELEMENTS (5) 1 ML, MULTIVITAMIN INJ 10 ML in AMINO... IV SCH (18:20)
[2016-11-26] MEDS: TAMSULOSIN 0.4 MG CAPSULE PO SCH (21:03)
[2016-11-27 05:34] LABS: Hematocrit 32.9 VOL% (42.0-52.0); Hemoglobin 10.9 GM/DL (14.0-18.0); Immature Granulocytes % 7.1 %; Immature Granulocytes Absolute 0.14 #; Lymphocytes # 0.1 10*3/uL (1.4-4.0); Mean Corpuscular HGB Conc 33.1 GM/DL (32-36); Mean Corpuscular Hemoglobin 29 PG (27-34); Mean Corpuscular Volume 88.2 FL (87-102); Mean Platelet Volume 9.1 FL (9.6-12.0); Monocytes % 1.5 % (1.7-12.7); Neutrophils # 1.7 10*3/uL (1.4-7.4); Neutrophils % 87.4 % (38.7-73.9); Platelet Count 161 10*3/uL (130-400); Red Blood Count 3.73 10*6/uL (3.8-5.5); Red Cell Distribution Width 12.5 % (9.3-17.3)
[2016-11-27 06:04] LABS: Band Neutrophils 1 % (0-10); Hypochromasia 1+; Lymphocytes 1 % (20-55); Segmented Neutrophils 97 % (50-85); Total Cells Counted 100
[2016-11-27 06:05] LABS: Microcytosis 1+
[2016-11-27 06:06] LABS: Platelet Estimate Adequate
[2016-11-27 06:08] LABS: Albumin 1.5 G/DL (3.4-5.0); Bilirubin,Total 1.4 MG/DL (0.2-1.0); Calcium 7.6 MG/DL (8.5-10.1); Magnesium 2.5 MG/DL (1.8-2.4); Osmolality,Calculated 288.8 MOS/KG (273-304); Potassium 4.9 MMOL/L (3.5-5.1)
[2016-11-27] MEDS: methylPREDNISolone SOD SUC 40 MG/1 ML VIAL IV SCH ×2 (06:08→18:49)
[2016-11-27 06:09] LABS: Phosphorous 2.4 MG/DL (2.5-4.9)
[2016-11-27] MEDS ORDERED: FILGRASTIM-SNDZ 300 MCG/0.5 ML SYRINGE SUBCUT ONE (07:58)
--- NOTE | 2016-11-27 08:00 | Oncology Progress Note ---
Assessment and Plan (1) Lymphoma Problem details: Needs IV access for chemo treatment Status: Acute Current Visit: Yes (2) Ascites Problem details: metastatic lymphoma with peritoneal disease Status: Acute Current Visit: Yes (3) Peritoneal carcinomatosis Status: Acute Current Visit: Yes (4) Lung metastases Status: Acute Current Visit: Yes (5) Malnutrition Status: Acute Current Visit: Yes Oncology Subjective PN Interval history: Mr. Gonzalez seems to be doing better now. His NG tube was accidentally removed overnight he is tolerating this fine. He is not having any vomiting at this point. His abdomen is still distended with decreased bowel sounds but he did tolerate soup with some coffee over the last 12 hours. He is getting out of bed to the bathroom and is also sitting up in the chair most of the day. Physical therapy will resume today. He received his chemotherapy last week and his white count has decreased some. I will start him on Neupogen today. We will see how the next few days ago to see if his gut regains function. This is our biggest limit her at this point. He is on TPN for now. If it appears that his TPN needs will continue for a while we could consider doing this at home if he regains physical function. He is not due another dose of chemotherapy for 2- 1/2 weeks. Exam - Constitutional Vitals: Period Temp Pulse Resp BP Sys/Lutz Pulse Ox Last 24 Hr 97.2 F-98.4 F 76-82 19-20 100-118/68-76 91-95 Results - Labs CBC & BMP: 11/27/16 04:24 11/27/16 04:25
[2016-11-27] MEDS: ALLOPURINOL 300 MG TABLET PO SCH (09:17)
[2016-11-27] MEDS: INSULIN REGULAR 100 UNIT/ML SUBCUT SCH ×3 (09:18→23:55)
[2016-11-27] MEDS: ENOXAPARIN 40 MG/0.4 ML SYRINGE SUBCUT SCH (09:19)
[2016-11-27] MEDS: PANTOPRAZOLE 40 MG VIAL IV SCH (09:20)
[2016-11-27] MEDS ORDERED: DEXTROSE 10% 1,000 ML IV PRN (16:59)
[2016-11-27] MEDS: ELECTROLYTE CONCENTRATE 40 ML, TRACE ELEMENTS (5) 1 ML, MULTIVITAMIN INJ 10 ML in AMINO... IV SCH (18:34)
[2016-11-27] MEDS: TAMSULOSIN 0.4 MG CAPSULE PO SCH (20:35)
[2016-11-28 05:18] LABS: Basophils # 0.1 10*3/uL (0.0-0.2); Basophils % 2.9 % (0.0-0.8); Hematocrit 34.6 VOL% (42.0-52.0); Hemoglobin 11.3 GM/DL (14.0-18.0); Immature Granulocytes % 24.9 %; Immature Granulocytes Absolute 0.68 #; Lymphocytes # 0.1 10*3/uL (1.4-4.0); Lymphocytes % 2.6 % (21.2-54.2); Mean Corpuscular HGB Conc 32.7 GM/DL (32-36); Mean Corpuscular Hemoglobin 30 PG (27-34); Mean Corpuscular Volume 90.8 FL (87-102); Mean Platelet Volume 9.6 FL (9.6-12.0); Monocytes % 1.5 % (1.7-12.7); Neutrophils # 1.9 10*3/uL (1.4-7.4); Neutrophils % 68.1 % (38.7-73.9); Platelet Count 135 10*3/uL (130-400); Red Blood Count 3.81 10*6/uL (3.8-5.5); Red Cell Distribution Width 12.5 % (9.3-17.3); White Blood Count 2.7 10*3/uL (4.5-13.71)
[2016-11-28 05:53] LABS: Band Neutrophils 5 % (0-10); Hypersegmented Neutrophil Few; Hypochromasia Slight; Lymphocytes 3 % (20-55); Platelet Estimate Adequate; Segmented Neutrophils 91 % (50-85); Total Cells Counted 100
[2016-11-28] MEDS: INSULIN REGULAR 100 UNIT/ML SUBCUT SCH ×3 (06:37→18:45)
[2016-11-28] MEDS ORDERED: FILGRASTIM-SNDZ 300 MCG/0.5 ML SYRINGE SUBCUT ONE (07:51)
--- NOTE | 2016-11-28 07:53 | Oncology Progress Note ---
Assessment and Plan (1) Lymphoma Problem details: Needs IV access for chemo treatment Status: Acute Current Visit: Yes (2) Ascites Problem details: metastatic lymphoma with peritoneal disease Status: Acute Current Visit: Yes (3) Peritoneal carcinomatosis Status: Acute Current Visit: Yes (4) Lung metastases Status: Acute Current Visit: Yes (5) Malnutrition Status: Acute Current Visit: Yes Oncology Subjective PN Interval history: Mr. Gonzalez seems to be slowly improving. Physical therapy is working with him now and hopefully he'll regain his physical strength over the next few days. We will continue with TPN but slowly try to advance his diet since he is tolerating by mouth intake with no nausea or vomiting. He states he is passing some flatus but has not had stool in a few days. Her abdomen is still distended and tight with faint bowel sounds. His neutrophil count remained less than 2 today so I will go ahead and give him another dose of Neupogen. We will continue with daily labs since we are still in the window of tumor lysis syndrome and he is on TPN. We briefly discussed that if his physical condition improves but he is still taking in very little by mouth, we can consider sending him home with TPN. I do not think he is anywhere near and physical shape to go home but may be in the next few days. He has no peripheral edema. He is alert and oriented person place and time. His mood still seems to be good. Exam - Constitutional Vitals: Period Temp Pulse Resp BP Sys/Lutz Pulse Ox Last 24 Hr 97.2 F-97.8 F 69-84 18-20 111-130/69-80 92-96 Results - Labs CBC & BMP: 11/28/16 04:16 11/27/16 04:25
[2016-11-28] MEDS: ALLOPURINOL 300 MG TABLET PO SCH (10:10)
[2016-11-28] MEDS: ENOXAPARIN 40 MG/0.4 ML SYRINGE SUBCUT SCH (10:13)
[2016-11-28] MEDS: PANTOPRAZOLE 40 MG VIAL IV SCH (10:21)
[2016-11-28] MEDS: ELECTROLYTE IV SCH (18:28)
[2016-11-28] MEDS: MULTIVITAMIN IV SCH (18:28)
[2016-11-28] MEDS: INSULIN REGULAR IV SCH (18:28)
[2016-11-28] MEDS: [UNRECOGNIZED DRUG - OTHER] IV SCH (18:28)
[2016-11-28] MEDS: TAMSULOSIN 0.4 MG CAPSULE PO SCH (20:56)
[2016-11-28] MEDS: TEMAZEPAM 7.5 MG CAPSULE PO PRN ×2 (20:56→22:25)
[2016-11-29 05:16] LABS: Basophils % 2.4 % (0.0-0.8); Eosinophils % 7.1 % (0.00-10.9); Hematocrit 32.3 VOL% (42.0-52.0); Hemoglobin 10.6 GM/DL (14.0-18.0); Immature Granulocytes % 38.1 %; Immature Granulocytes Absolute 0.16 #; Lymphocytes # 0.1 10*3/uL (1.4-4.0); Mean Corpuscular HGB Conc 32.8 GM/DL (32-36); Mean Corpuscular Hemoglobin 29 PG (27-34); Mean Corpuscular Volume 88.7 FL (87-102); Mean Platelet Volume 9.7 FL (9.6-12.0); Monocytes % 4.8 % (1.7-12.7); Neutrophils # 0.1 10*3/uL (1.4-7.4); Neutrophils % 28.6 % (38.7-73.9); Platelet Count 111 10*3/uL (130-400); Red Blood Count 3.64 10*6/uL (3.8-5.5); Red Cell Distribution Width 12.5 % (9.3-17.3)
[2016-11-29 05:29] LABS: White Blood Count 0.4 10*3/uL (4.5-13.71)
[2016-11-29 05:52] LABS: Eosinophils 20 % (0-10); Hypochromasia Slight; Platelet Estimate Decreased; Segmented Neutrophils 80 % (50-85); Total Cells Counted 100
[2016-11-29 05:53] LABS: Microcytosis Slight
[2016-11-29] MEDS: INSULIN REGULAR 100 UNIT/ML SUBCUT SCH ×4 (06:01→18:37)
[2016-11-29 06:02] LABS: Albumin 1.5 G/DL (3.4-5.0); Bilirubin,Total 1.5 MG/DL (0.2-1.0); Calcium 7.5 MG/DL (8.5-10.1); Osmolality,Calculated 283.5 MOS/KG (273-304); Potassium 4.1 MMOL/L (3.5-5.1); Total Protein 3.9 G/DL (6.4-8.3)
[2016-11-29] MEDS: FILGRASTIM-SNDZ 300 MCG/0.5 ML SYRINGE SUBCUT SCH ×2 (06:02→10:01)
--- NOTE | 2016-11-29 07:51 | Oncology Progress Note ---
Assessment and Plan (1) Lymphoma Problem details: Needs IV access for chemo treatment Status: Acute Current Visit: Yes (2) Ascites Problem details: metastatic lymphoma with peritoneal disease Status: Acute Current Visit: Yes (3) Peritoneal carcinomatosis Status: Acute Current Visit: Yes (4) Lung metastases Status: Acute Current Visit: Yes (5) Malnutrition Status: Acute Current Visit: Yes Oncology Subjective PN Interval history: Mr. Gonzalez seems to be doing better each day. He states that he ambulated with assistance to the door yesterday. He also had 3 small bowel movements yesterday and noticed more flatus production. He tolerated a full liquid diet yesterday but still does not take in a large amount. We will continue with a full liquid diet today and may be advanced to a soft diet tomorrow. I'll continue with TPN. His white blood cell count has decreased dramatically we will continue with daily Neupogen. He does not need any transfusions at this time. His abdomen level remains quite low but hopefully this will improve with further TPN and by mouth intake. On exam his abdomen is still distended but there is some increased bowel sounds. I do not palpate a fluid wave. His lungs are clear. He does have some mild thrush on his oral services so I will start him on Diflucan. Exam - Constitutional Vitals: Period Temp Pulse Resp BP Sys/Lutz Pulse Ox Last 24 Hr 96.5 F-97.2 F 76-88 18-20 107-142/61-76 95-97 Results - Labs CBC & BMP: 11/29/16 04:23 11/29/16 04:23
[2016-11-29] MEDS: PANTOPRAZOLE 40 MG VIAL IV SCH (09:19)
[2016-11-29] MEDS: FLUCONAZOLE INJ 200 MG in PREMIX 1 EACH IV SCH (09:19)
[2016-11-29] MEDS: ENOXAPARIN 40 MG/0.4 ML SYRINGE SUBCUT SCH (09:20)
[2016-11-29] MEDS: LEVOFLOXACIN INJ 500 MG in PREMIX 1 EACH IV SCH (10:15)
[2016-11-29] MEDS: ELECTROLYTE IV SCH (18:10)
[2016-11-29] MEDS: MULTIVITAMIN IV SCH (18:10)
[2016-11-29] MEDS: [UNRECOGNIZED DRUG - OTHER] IV SCH (18:10)
[2016-11-29] MEDS: INSULIN REGULAR IV SCH (18:10)
[2016-11-29] MEDS: TEMAZEPAM 7.5 MG CAPSULE PO PRN (20:58)
[2016-11-29] MEDS: TAMSULOSIN 0.4 MG CAPSULE PO SCH (20:58)
[2016-11-30] MEDS: INSULIN REGULAR 100 UNIT/ML SUBCUT SCH ×4 (00:38→18:10)
[2016-11-30 05:19] LABS: Eosinophils % 10.7 % (0.00-10.9); Hematocrit 30.7 VOL% (42.0-52.0); Hemoglobin 10.1 GM/DL (14.0-18.0); Lymphocytes # 0.1 10*3/uL (1.4-4.0); Lymphocytes % 46.4 % (21.2-54.2); Mean Corpuscular HGB Conc 32.9 GM/DL (32-36); Mean Corpuscular Hemoglobin 29 PG (27-34); Mean Corpuscular Volume 88.2 FL (87-102); Mean Platelet Volume 10.2 FL (9.6-12.0); Monocytes % 10.7 % (1.7-12.7); Neutrophils # 0.1 10*3/uL (1.4-7.4); Neutrophils % 32.2 % (38.7-73.9); Platelet Count 97 10*3/uL (130-400); Red Blood Count 3.48 10*6/uL (3.8-5.5); Red Cell Distribution Width 12.5 % (9.3-17.3)
--- NOTE | 2016-11-30 05:25 | Oncology Progress Note ---
Assessment and Plan (1) Lymphoma Problem details: Needs IV access for chemo treatment Status: Acute Current Visit: Yes (2) Ascites Problem details: metastatic lymphoma with peritoneal disease Status: Acute Current Visit: Yes (3) Peritoneal carcinomatosis Status: Acute Current Visit: Yes (4) Lung metastases Status: Acute Current Visit: Yes (5) Malnutrition Status: Acute Current Visit: Yes Oncology Subjective PN Interval history: Mr. Gonzalez continues to slowly improve. He is ambulating more now. His by mouth intake is slowly improving. He did have 2 small bowel movements yesterday. We are still needing to continue with TPN since his nutrition is not quite where it needs to be by mouth. I am awaiting his labs to return to see what his blood counts are doing. We will continue with Neupogen. I'm also continuing with Levaquin and Diflucan. I anticipate that he'll remain in the hospital for a few more days for we continue physical therapy and parenteral nutrition. We also need to see his blood counts recover before we let him go home. He has are both fine being in the hospital. Hopefully at some point next week, we can discharge him home. He is not due his next round of chemotherapy for 2 more weeks. On exam today his abdomen does feels somewhat softer but is still distended. There is only faint bowel sounds. His lungs are clear. His oral candidiasis is improved. He is alert known to person place and time. His is at bedside. Exam - Constitutional Vitals: Period Temp Pulse Resp BP Sys/Lutz Pulse Ox Last 24 Hr 96.3 F-98.1 F 83-88 18-22 115-131/60-75 96-97 Results - Labs CBC & BMP: 11/29/16 04:23 11/29/16 04:23
[2016-11-30 05:40] LABS: White Blood Count 0.3 10*3/uL (4.5-13.71)
[2016-11-30 05:52] LABS: Eosinophils 20 % (0-10); Lymphocytes 40 % (20-55); Phosphorous 1.2 MG/DL (2.5-4.9); Platelet Estimate Decreased; Segmented Neutrophils 40 % (50-85); Total Cells Counted 5
[2016-11-30 05:55] LABS: Albumin 1.6 G/DL (3.4-5.0); Bilirubin,Total 1.2 MG/DL (0.2-1.0); Calcium 7.4 MG/DL (8.5-10.1); Osmolality,Calculated 281.5 MOS/KG (273-304); Total Protein 3.9 G/DL (6.4-8.3)
[2016-11-30] MEDS: ENOXAPARIN 40 MG/0.4 ML SYRINGE SUBCUT SCH (08:56)
[2016-11-30] MEDS: FILGRASTIM-SNDZ 300 MCG/0.5 ML SYRINGE SUBCUT SCH (08:56)
[2016-11-30] MEDS: PANTOPRAZOLE 40 MG VIAL IV SCH (08:57)
[2016-11-30] MEDS: FLUCONAZOLE INJ 200 MG in PREMIX 1 EACH IV SCH (08:57)
[2016-11-30] MEDS: LEVOFLOXACIN INJ 500 MG in PREMIX 1 EACH IV SCH (10:16)
[2016-11-30] MEDS ORDERED: SODIUM PHOSPHATE INJ 30 MMOL in SODIUM CHLORIDE 0.9% 250 ML IV ONE (12:01)
[2016-11-30] MEDS: ELECTROLYTE IV SCH (17:19)
[2016-11-30] MEDS: MULTIVITAMIN IV SCH (17:19)
[2016-11-30] MEDS: INSULIN REGULAR IV SCH (17:19)
[2016-11-30] MEDS: [UNRECOGNIZED DRUG - OTHER] IV SCH (17:19)
[2016-11-30] MEDS ORDERED: HEPARIN LOCK FLUSH 500 UNIT/5 ML SYRINGE IV ONE (20:13)
[2016-11-30] MEDS: TEMAZEPAM 7.5 MG CAPSULE PO PRN ×2 (20:28→22:50)
[2016-11-30] MEDS: TAMSULOSIN 0.4 MG CAPSULE PO SCH (20:28)
[2016-12-01] MEDS: INSULIN REGULAR 100 UNIT/ML SUBCUT SCH ×4 (00:55→18:18)
[2016-12-01 06:37] LABS: Basophils % 2.1 % (0.0-0.8); Eosinophils % 4.3 % (0.00-10.9); Hematocrit 31.8 VOL% (42.0-52.0); Hemoglobin 10.5 GM/DL (14.0-18.0); Immature Granulocytes % 2.1 %; Immature Granulocytes Absolute 0.01 #; Lymphocytes # 0.2 10*3/uL (1.4-4.0); Lymphocytes % 44.7 % (21.2-54.2); Mean Corpuscular Hemoglobin 29 PG (27-34); Mean Corpuscular Volume 88.3 FL (87-102); Mean Platelet Volume 10.5 FL (9.6-12.0); Monocytes # 0.1 10*3/uL (0.11-0.8); Monocytes % 29.8 % (1.7-12.7); Neutrophils # 0.1 10*3/uL (1.4-7.4); Platelet Count 112 10*3/uL (130-400); Red Cell Distribution Width 12.7 % (9.3-17.3)
[2016-12-01 06:42] LABS: White Blood Count 0.5 10*3/uL (4.5-13.71)
[2016-12-01 06:59] LABS: Band Neutrophils 10 % (0-10); Elliptocytes Few; Eosinophils 10 % (0-10); Hypochromasia 1+; Lymphocytes 30 % (20-55); Microcytosis Slight; Platelet Estimate Decreased; Segmented Neutrophils 30 % (50-85); Total Cells Counted 100
[2016-12-01 07:09] LABS: Albumin 1.6 G/DL (3.4-5.0); Calcium 7.5 MG/DL (8.5-10.1); Osmolality,Calculated 284.3 MOS/KG (273-304); Total Protein 4.1 G/DL (6.4-8.3)
[2016-12-01] MEDS ORDERED: ALBUTEROL/IPRATROPIUM 3 ML NEB RESP TX PRN (09:06)
[2016-12-01] MEDS ORDERED: ALBUTEROL/IPRATROPIUM 3 ML NEB RESP TX ONE (09:06)
--- NOTE | 2016-12-01 09:11 | Oncology Progress Note ---
Assessment and Plan (1) Lymphoma Problem details: Needs IV access for chemo treatment Status: Acute Current Visit: Yes (2) Ascites Problem details: metastatic lymphoma with peritoneal disease Status: Acute Current Visit: Yes (3) Peritoneal carcinomatosis Status: Acute Current Visit: Yes (4) Lung metastases Status: Acute Current Visit: Yes (5) Malnutrition Status: Acute Current Visit: Yes Oncology Subjective PN Interval history: Mr. Gonzalez complains of shortness of breath today the mainly develops once he gets out of bed. He denies any chest pain. He states he has had 2 separate bowel movements within the last 24 hours that were both of fairly good volume. Physical therapy is working with him and are increasing his exercises daily. He states he ambulated in all yesterday. His white count is still low with almost 0 neutrophils. We will continue with Neupogen. I will get a chest x- ray today and give him a nebulized treatment to see if this improves his shortness of breath. He has been on Lovenox. His symptoms do not sound like pulmonary emboli but we will have to keep this in mind if they persist. He has no lower extremity edema. His abdomen is still distended but soft. His lungs are clear to auscultation with no wheezes or rales. There are no crackles either. He is alert and oriented to person place and time. We will continue with TPN for now but we are slowly advancing his diet. We will try regular diet today but I encouraged him to eat small portions. If we continue to improve at this rate, I anticipate that he'll be ready for discharge once his neutrophil count recovers sometime next week. Exam - Constitutional Vitals: Period Temp Pulse Resp BP Sys/Lutz Pulse Ox Last 24 Hr 97.8 F-98.2 F 82-88 18-20 113-127/40-74 95-97 Results - Labs CBC & BMP: 12/01/16 04:34 12/01/16 04:34
[2016-12-01] MEDS: FILGRASTIM-SNDZ 300 MCG/0.5 ML SYRINGE SUBCUT SCH (09:47)
[2016-12-01] MEDS: FLUCONAZOLE INJ 200 MG in PREMIX 1 EACH IV SCH (09:47)
[2016-12-01] MEDS: ENOXAPARIN 40 MG/0.4 ML SYRINGE SUBCUT SCH (09:47)
[2016-12-01] MEDS: PANTOPRAZOLE 40 MG VIAL IV SCH (09:48)
[2016-12-01] MEDS: LEVOFLOXACIN INJ 500 MG in PREMIX 1 EACH IV SCH (10:57)
--- NOTE | 2016-12-01 11:29 | XRay Report ---
Exam: XR chest 1V portable Date: 12/01/2016 9:07 AM Indication: Shortness of breath Comparison: None Technical:AP portable Findings: Left-sided PICC line is present this tips in the superior vena cava proximal right atrial junction. Nasogastric tube has been removed. No obvious infiltrate or effusion. Mediastinum is intact. Lateral marginal osteophytes are noted. Impression: 1. Satisfactory placement of left-sided PICC line 2. No acute cardiopulmonary pathology 3. The nasogastric tube has been removed PROCEDURE INTERPRETED AT [facility] DEPARTMENT OF RADIOLOGY Final Report Signed by: Dr. Jemal Macias
[2016-12-01] MEDS: FAT EMULSION 20% 250 ML IV SCH (15:20)
[2016-12-01] MEDS: ELECTROLYTE IV SCH (16:32)
[2016-12-01] MEDS: [UNRECOGNIZED DRUG - OTHER] IV SCH (16:32)
[2016-12-01] MEDS: MULTIVITAMIN IV SCH (16:32)
[2016-12-01] MEDS: TRACE ELEMENTS IV SCH (16:32)
[2016-12-01] MEDS: TEMAZEPAM 7.5 MG CAPSULE PO PRN ×2 (19:44→20:44)
[2016-12-01] MEDS: TAMSULOSIN 0.4 MG CAPSULE PO SCH (20:44)
[2016-12-02] MEDS: INSULIN REGULAR 100 UNIT/ML SUBCUT SCH ×5 (00:53→23:18)
[2016-12-02] MEDS: ALPRAZolam 0.25 MG TABLET PO PRN ×2 (01:25→20:13)
[2016-12-02 02:37] LABS: Basophils % 0.5 % (0.0-0.8); Hematocrit 32.4 VOL% (42.0-52.0); Hemoglobin 10.7 GM/DL (14.0-18.0); Immature Granulocytes % 2.6 %; Immature Granulocytes Absolute 0.05 #; Lymphocytes # 0.3 10*3/uL (1.4-4.0); Lymphocytes % 16.9 % (21.2-54.2); Mean Corpuscular Hemoglobin 29 PG (27-34); Mean Platelet Volume 10.5 FL (9.6-12.0); Monocytes # 0.5 10*3/uL (0.11-0.8); Monocytes % 26.7 % (1.7-12.7); NRBC # 0.09 10*3/uL; Neutrophils % 52.3 % (38.7-73.9); Platelet Count 125 10*3/uL (130-400); Red Blood Count 3.68 10*6/uL (3.8-5.5); Red Cell Distribution Width 12.8 % (9.3-17.3)
[2016-12-02 03:22] LABS: Albumin 1.7 G/DL (3.4-5.0); Bilirubin,Total 1.1 MG/DL (0.2-1.0); Calcium 7.6 MG/DL (8.5-10.1); Osmolality,Calculated 285.4 MOS/KG (273-304); Potassium 3.8 MMOL/L (3.5-5.1); Total Protein 4.3 G/DL (6.4-8.3)
[2016-12-02 05:06] LABS: Band Neutrophils 7 % (0-10); Lymphocytes 29 % (20-55); Myelocytes 4 %; Nucleated Red Blood Cells 7 (0-5); Segmented Neutrophils 36 % (50-85); Total Cells Counted 100
[2016-12-02 05:07] LABS: Platelet Estimate Adequate; Polychromasia Few
--- NOTE | 2016-12-02 09:32 | Oncology Progress Note ---
Assessment and Plan (1) Lymphoma Problem details: Needs IV access for chemo treatment Status: Acute Current Visit: Yes (2) Ascites Problem details: metastatic lymphoma with peritoneal disease Status: Acute Current Visit: Yes (3) Peritoneal carcinomatosis Status: Acute Current Visit: Yes (4) Lung metastases Status: Acute Current Visit: Yes (5) Malnutrition Status: Acute Current Visit: Yes (6) Shortness of breath Status: Acute Current Visit: Yes Oncology Subjective PN Interval history: Mr. Gonzalez continues to improve daily. His neutrophil count is improving. He is tolerating his regular diet well but is still taking in small amounts. He still has shortness of breath even at rest. There are no audible findings on his chest exam there are no opacifications on his chest x-ray done yesterday. Since I cannot explain his new onset shortness of breath I will set him up for a PE protocol CT today and also do bilateral lower extremity Dopplers. We'll continue with Neupogen but I anticipate we will be held to stop this in the next couple days as his neutrophil count will now likely started increasing rapidly. His other cell lines are also improving. Continue with TPN until his by mouth nutrition is more adequate. I've encouraged him to ambulate as much as he can tolerate and sit in the chair for the majority of the day. I anticipate he'll be ready for discharge sometime next week. On exam his abdomen is soft but still mildly distended. There is moderate bowel sounds. His lungs are clear with no wheezes. He is alert known to person place and time. Exam - Constitutional Vitals: Period Temp Pulse Resp BP Sys/Lutz Pulse Ox Last 24 Hr 96.5 F-98.4 F 62-106 20-22 103-158/54-67 83-99 General appearance: normal weight, no acute distress - Head Head Exam: Present: normocephalic, atraumatic - Eye Eye Exam: Present: EOMI Pupils: Present: PERRL - ENT ENT exam: Present: normal exam, normal oropharynx - Neck Neck exam: Absent: lymphadenopathy, thyromegaly - Respiratory Respiratory exam: Present: CTAB. Absent: wheezes - GI/Abdominal GI/Abdominal exam: Present: distended, soft. Absent: ascites, firm, guarding, mass Results - Labs CBC & BMP: 12/02/16 02:18 12/02/16 02:18 Lab Results: I have reviewed the past 24 hour labs - Diagnostic Findings Procedure: Chest x-ray: report reviewed by me
[2016-12-02] MEDS: FLUCONAZOLE INJ 200 MG in PREMIX 1 EACH IV SCH (10:06)
--- NOTE | 2016-12-02 10:30 | CT Report ---
CT chest PE study Indication: Shortness of breath. CT CHEST WITH CONTRAST, PE PROTOCOL DLP: 387 mGy*cm Comparison: None Technique: Axial CT images of the chest were obtained during the pulmonary arterial phase of contrast injection. Coronal reconstructions were provided. Omnipaque 350, 80 cc. Findings: Filling defects involve the right lower lobar, right upper lobar, medial segment right middle lobe, left lower lobe are and segmental branches of the left upper lobe pulmonary arteries. Main pulmonary artery is free of thrombus. Main pulmonary artery is normal in size. Normal heart size. Trace pericardial effusion noted. Mediastinal lymphadenopathy is present, largest node 14 mm short axis pretracheal. No axillary lymphadenopathy. Bilateral hilar soft tissue densities are present, most likely an enlarged nodes. In the right superhilar region, the largest density is 21 x 21 mm diameter. On the left, largest density is left lower lobe measuring 13 x 14 mm in size. There is a spiculated 8mm soft tissue density anterior right upper lobe. And scarring associated with the right lobe is present, there are patchy areas of groundglass opacity bilaterally. Subpleural density, poorly defined, measuring approximately 12 mm diameter anterior left upper lobe noted. Pleural based densities lateral left lower lobe are present, largest 13 mm diameter. Small left pleural effusion is present. No significant effusion on the right. Limited views of the upper abdomen appear grossly unremarkable but incompletely evaluated. No destructive bone lesions are seen. Left chest wall Mediport noted. Impression: 1. Acute pulmonary embolus throughout both lungs as described above. 2. Mediastinal lymphadenopathy. Soft tissue fullness both hilar regions noted, more pronounced on the right, presumably neoplasm. These areas are positive on PET scan 11/20/16. 3. Subcentimeter pulmonary nodule anterior right upper lobe. Scarring right upper lobe. Nonspecific patchy areas of groundglass opacity bilaterally. Subpleural densities as described left upper lobe and left lung base. Small left pleural effusion. Comment: Critical test result discussed with Dr. Byers at 1025 hrs. PROCEDURE INTERPRETED AT [facility] DEPARTMENT OF RADIOLOGY Final Report Signed by: Emigdio Harmon M.D.
[2016-12-02] MEDS: LEVOFLOXACIN INJ 500 MG in PREMIX 1 EACH IV SCH (11:03)
[2016-12-02] MEDS: FILGRASTIM-SNDZ 300 MCG/0.5 ML SYRINGE SUBCUT SCH (11:04)
--- NOTE | 2016-12-02 11:04 | Ultrasound Report ---
US venous doppler LE BI Indication: Shortness of breath. Pulmonary embolus. Bilateral lower extremity DVT ultrasound: Grayscale graded compression, color Doppler and pulse Doppler waveform interrogation of the venous system of both legs obtained. There is eccentric nonocclusive thrombus within the left common femoral vein over a short distance. The right common femoral vein, both superficial femoral veins and popliteal veins are widely patent with no additional DVT evident. Impression: Short segment nonocclusive eccentric thrombus the left common femoral vein. Comment: Critical test result related to acute PE findings on CT discussed with Dr. Byers approximately 30 minutes earlier. Please see CT PE report for time and nature of conversation. PROCEDURE INTERPRETED AT [facility] DEPARTMENT OF RADIOLOGY Final Report Signed by: Emigdio Harmon M.D.
[2016-12-02] MEDS: ENOXAPARIN 100 MG/ML SYRINGE SUBCUT SCH ×2 (11:06→23:01)
[2016-12-02] MEDS: PANTOPRAZOLE 40 MG VIAL IV SCH (11:08)
[2016-12-02] MEDS: ENOXAPARIN 40 MG/0.4 ML SYRINGE SUBCUT SCH (11:14)
[2016-12-02] MEDS ORDERED: HEPARIN LOCK FLUSH 500 UNIT/5 ML SYRINGE IV ONE (11:57)
[2016-12-02] MEDS: FAT EMULSION 20% 250 ML IV SCH (16:49)
[2016-12-02] MEDS: ELECTROLYTE IV SCH (16:55)
[2016-12-02] MEDS: TRACE ELEMENTS IV SCH (16:55)
[2016-12-02] MEDS: MULTIVITAMIN IV SCH (16:55)
[2016-12-02] MEDS: [UNRECOGNIZED DRUG - OTHER] IV SCH (16:55)
[2016-12-02] MEDS: TEMAZEPAM 7.5 MG CAPSULE PO PRN ×2 (20:13→22:53)
[2016-12-02] MEDS: TAMSULOSIN 0.4 MG CAPSULE PO SCH (20:13)
[2016-12-03 03:48] LABS: Albumin 1.8 G/DL (3.4-5.0); Basophils % 0.5 % (0.0-0.8); Bilirubin,Total 1.4 MG/DL (0.2-1.0); Calcium 7.5 MG/DL (8.5-10.1); Eosinophils # 0.1 10*3/uL (0.0-0.87); Eosinophils % 0.6 % (0.00-10.9); Hematocrit 33.2 VOL% (42.0-52.0); Hemoglobin 10.8 GM/DL (14.0-18.0); Lymphocytes # 0.5 10*3/uL (1.4-4.0); Lymphocytes % 5.6 % (21.2-54.2); Mean Corpuscular HGB Conc 32.5 GM/DL (32-36); Mean Corpuscular Hemoglobin 29 PG (27-34); Mean Corpuscular Volume 88.3 FL (87-102); Mean Platelet Volume 11.4 FL (9.6-12.0); Monocytes # 1.4 10*3/uL (0.11-0.8); Monocytes % 17.3 % (1.7-12.7); Neutrophils # 5.3 10*3/uL (1.4-7.4); Osmolality,Calculated 284.3 MOS/KG (273-304); Platelet Count 146 10*3/uL (130-400); Potassium 3.6 MMOL/L (3.5-5.1); Red Blood Count 3.76 10*6/uL (3.8-5.5); Red Cell Distribution Width 13.3 % (9.3-17.3); Total Protein 4.5 G/DL (6.4-8.3)
[2016-12-03 04:21] LABS: Band Neutrophils 6 % (0-10); Eosinophils 2 % (0-10); Lymphocytes 9 % (20-55); Metamyelocytes 8 %; Myelocytes 1 %; Nucleated Red Blood Cells 2 (0-5); Segmented Neutrophils 61 % (50-85); Total Cells Counted 100
[2016-12-03 04:23] LABS: Hypochromasia 2+; Platelet Estimate Adequate
[2016-12-03] MEDS: INSULIN REGULAR 100 UNIT/ML SUBCUT SCH ×3 (05:41→16:15)
[2016-12-03] MEDS: FILGRASTIM-SNDZ 300 MCG/0.5 ML SYRINGE SUBCUT SCH (09:40)
[2016-12-03] MEDS: ENOXAPARIN 100 MG/ML SYRINGE SUBCUT SCH ×3 (09:42→23:31)
[2016-12-03] MEDS: LEVOFLOXACIN INJ 500 MG in PREMIX 1 EACH IV SCH (09:46)
--- NOTE | 2016-12-03 09:46 | Oncology Progress Note ---
Assessment and Plan (1) Lymphoma Problem details: Needs IV access for chemo treatment Status: Acute Current Visit: Yes (2) Ascites Problem details: metastatic lymphoma with peritoneal disease Status: Acute Current Visit: Yes (3) Peritoneal carcinomatosis Status: Acute Current Visit: Yes (4) Lung metastases Status: Acute Current Visit: Yes (5) Malnutrition Status: Acute Current Visit: Yes (6) Shortness of breath Status: Acute Current Visit: Yes Oncology Subjective PN Interval history: Mr. Gonzalez was found to have bilateral pulmonary emboli throughout all major loads of his bilateral lungs. He also was found to have a nonoccluding left lower semi-thrombus. He was started on weight-based Lovenox. He was previously on prophylactic dose Lovenox. This clot in his left leg was most likely present before admission but since it was not occlusive we did not see any signs or symptoms of this. I encouraged him to only ambulate to the bathroom today. This will give us 2 days of anticoagulation before he resumes physical therapy tomorrow. His white blood cell count has recovered fully we will discontinue Neupogen today. His platelet count is increasing daily as well. His abdomen level is slowly increasing now with improved nutrition. I'm hoping that at some point this week he can be discharged home. I think we are getting close to where we can back off the rate of his TPN starting tomorrow and allow him to increase his by mouth intake. I will make that decision tomorrow morning on rounds. I'll discontinue Levaquin since his neutrophil count has improved. I exam his abdomen is more soft with improved bowel sounds. His thrush has resolved. His lungs are clear. He is alert known to person place and time. I explained to him that he'll remain on anticoagulation at least throughout his chemotherapy treatments but we will decide about long- term anticoagulation depending on resolution of the blood clots. Exam - Constitutional Vitals: Period Temp Pulse Resp BP Sys/Lutz Pulse Ox Last 24 Hr 97.3 F-98.7 F 95-100 18-24 119-130/61-75 89-96 Results - Labs CBC & BMP: 12/03/16 02:39 12/03/16 02:39
[2016-12-03] MEDS: PANTOPRAZOLE 40 MG VIAL IV SCH (09:47)
[2016-12-03] MEDS: [UNRECOGNIZED DRUG - OTHER] IV SCH (16:54)
[2016-12-03] MEDS: MULTIVITAMIN IV SCH (16:54)
[2016-12-03] MEDS: ELECTROLYTE IV SCH (16:54)
[2016-12-03] MEDS: TRACE ELEMENTS IV SCH (16:54)
[2016-12-03] MEDS: FAT EMULSION 20% 250 ML IV SCH (16:59)
[2016-12-03] MEDS: ALPRAZolam 0.25 MG TABLET PO PRN (20:59)
[2016-12-03] MEDS: TAMSULOSIN 0.4 MG CAPSULE PO SCH (20:59)
[2016-12-04] MEDS: INSULIN REGULAR 100 UNIT/ML SUBCUT SCH ×4 (00:54→18:18)
[2016-12-04 06:07] LABS: Basophils # 0.1 10*3/uL (0.0-0.2); Basophils % 0.4 % (0.0-0.8); Eosinophils # 0.1 10*3/uL (0.0-0.87); Eosinophils % 0.4 % (0.00-10.9); Hematocrit 33.6 VOL% (42.0-52.0); Hemoglobin 11.1 GM/DL (14.0-18.0); Immature Granulocytes % 15.1 %; Immature Granulocytes Absolute 2.03 #; Lymphocytes # 0.9 10*3/uL (1.4-4.0); Lymphocytes % 6.5 % (21.2-54.2); Mean Corpuscular Hemoglobin 30 PG (27-34); Mean Corpuscular Volume 90.1 FL (87-102); Mean Platelet Volume 11.2 FL (9.6-12.0); Monocytes # 1.5 10*3/uL (0.11-0.8); Monocytes % 10.8 % (1.7-12.7); NRBC # 0.26 10*3/uL; Neutrophils % 66.8 % (38.7-73.9); Platelet Count 160 10*3/uL (130-400); Red Blood Count 3.73 10*6/uL (3.8-5.5); Red Cell Distribution Width 13.7 % (9.3-17.3); White Blood Count 13.5 10*3/uL (4.5-13.71)
[2016-12-04 06:43] LABS: Band Neutrophils 4 % (0-10); Lymphocytes 5 % (20-55); Nucleated Red Blood Cells 2 (0-5); Segmented Neutrophils 81 % (50-85); Total Cells Counted 100
[2016-12-04 06:44] LABS: Calcium 7.3 MG/DL (8.5-10.1); Hypochromasia 1+; Ovalocytes Slight; Platelet Estimate Normal; Potassium 3.5 MMOL/L (3.5-5.1)
[2016-12-04 06:46] LABS: Albumin 1.8 G/DL (3.4-5.0); Bilirubin,Total 1.2 MG/DL (0.2-1.0); Calcium 7.3 MG/DL (8.5-10.1); Potassium 3.5 MMOL/L (3.5-5.1); Total Protein 4.5 G/DL (6.4-8.3)
--- NOTE | 2016-12-04 07:57 | Oncology Progress Note ---
Assessment and Plan (1) Lymphoma Problem details: Needs IV access for chemo treatment Status: Acute Current Visit: Yes (2) Ascites Problem details: metastatic lymphoma with peritoneal disease Status: Acute Current Visit: Yes (3) Peritoneal carcinomatosis Status: Acute Current Visit: Yes (4) Lung metastases Status: Acute Current Visit: Yes (5) Malnutrition Status: Acute Current Visit: Yes (6) Shortness of breath Status: Acute Current Visit: Yes Oncology Subjective PN Interval history: Mr. Gonzalez continues to improve daily. He is eating better now than he was just 2 days ago. I will decrease the rate of his TPN down the 45 to see if this improves his appetite some. Hopefully we can take him off of TPN completely within the next day or 2. We will continue with Lovenox for his anticoagulation given his new pulmonary emboli diagnosed this weekend. He is okay to resume physical therapy this week. His lab work has improved and he seems to be recovering from his recent chemotherapy. He is due his next round of chemotherapy next week. I'm hoping have him discharged later this week so that he can continue the rest of his therapy as an outpatient. On exam his abdomen is soft. He does have decreased bowel sounds. His lungs are clear to auscultation bilaterally no wheezing. He has dry mucous membranes but no definitive mucositis. There is still some faint thrush of his oral surfaces. Exam - Constitutional Vitals: Period Temp Pulse Resp BP Sys/Lutz Pulse Ox Last 24 Hr 96.8 F-98.5 F 100-105 20-28 118-139/73-85 91-92 Results - Labs CBC & BMP: 12/04/16 04:22 12/04/16 04:22 Lab Results: I have reviewed the past 24 hour labs
[2016-12-04] MEDS: NYSTATIN 500,000 UNIT/5 ML UDCUP SWISH/SWAL SCH ×3 (09:09→20:46)
[2016-12-04] MEDS: ENOXAPARIN 100 MG/ML SYRINGE SUBCUT SCH ×2 (09:10→20:46)
[2016-12-04] MEDS: PANTOPRAZOLE 40 MG VIAL IV SCH (09:11)
[2016-12-04] MEDS: FAT EMULSION 20% 250 ML IV SCH (15:04)
[2016-12-04] MEDS: TRACE ELEMENTS IV SCH (17:19)
[2016-12-04] MEDS: [UNRECOGNIZED DRUG - OTHER] IV SCH (17:19)
[2016-12-04] MEDS: ELECTROLYTE IV SCH (17:19)
[2016-12-04] MEDS: MULTIVITAMIN IV SCH (17:19)
[2016-12-04] MEDS: TAMSULOSIN 0.4 MG CAPSULE PO SCH (20:46)
[2016-12-04] MEDS: ALPRAZolam 0.25 MG TABLET PO PRN (20:47)
[2016-12-05] MEDS: INSULIN REGULAR 100 UNIT/ML SUBCUT SCH ×4 (00:07→18:16)
--- NOTE | 2016-12-05 07:56 | Oncology Progress Note ---
Assessment and Plan (1) Lymphoma Problem details: Needs IV access for chemo treatment Status: Acute Current Visit: Yes (2) Ascites Problem details: metastatic lymphoma with peritoneal disease Status: Acute Current Visit: Yes (3) Peritoneal carcinomatosis Status: Acute Current Visit: Yes (4) Lung metastases Status: Acute Current Visit: Yes (5) Malnutrition Status: Acute Current Visit: Yes (6) Shortness of breath Status: Acute Current Visit: Yes Oncology Subjective PN Interval history: Mr. Gonzalez is doing very well now. His appetite has improved significantly and his abdomen is much softer. We are slowly decreasing his TPN while he is increasing his by mouth intake. He ambulated around the room yesterday with very little assistance per his report. His shortness of breath has significantly improved as well. He remains on Lovenox at 90 mg subcutaneous every 12 hours. We will convert this to Xarelto upon discharge. His thrush has improved as well using nystatin swish and swallow. I'll recheck lab work in the morning. I will decrease his TPN right to 25 mL/h today and then likely tenderness off tomorrow. We had a lengthy discussion today about discharge planning. He is very hesitant about going home before his next round of chemotherapy but I told him that there is no reason to stay here for another week just waiting for chemotherapy. I think he'll be perfectly fine at home and be ready for discharge in the next couple days. He is not due his next round of chemotherapy until next week. On exam his lungs are clear with no audible wheezes. His skin is warm and dry with no rashes. His PICC line is noninflamed but does have some petechiae around the base. He is alert and oriented person place and time. Oropharynx examination shows moist mucous membranes and only slight oral candidiasis. Exam - Constitutional Vitals: Period Temp Pulse Resp BP Sys/Lutz Pulse Ox Last 24 Hr 96.3 F-98.7 F 93-107 20-24 124-145/74-83 93-99 Results - Labs CBC & BMP: 12/04/16 04:22 12/04/16 04:22
[2016-12-05] MEDS: ENOXAPARIN 100 MG/ML SYRINGE SUBCUT SCH ×2 (09:58→21:00)
[2016-12-05] MEDS: NYSTATIN 500,000 UNIT/5 ML UDCUP SWISH/SWAL SCH ×3 (10:00→20:59)
[2016-12-05] MEDS: PANTOPRAZOLE 40 MG VIAL IV SCH (10:00)
[2016-12-05] MEDS: FAT EMULSION 20% 250 ML IV SCH (15:16)
[2016-12-05] MEDS: TRACE ELEMENTS IV SCH (17:47)
[2016-12-05] MEDS: ELECTROLYTE IV SCH (17:47)
[2016-12-05] MEDS: MULTIVITAMIN IV SCH (17:47)
[2016-12-05] MEDS: [UNRECOGNIZED DRUG - OTHER] IV SCH (17:47)
[2016-12-05] MEDS: TAMSULOSIN 0.4 MG CAPSULE PO SCH (20:59)
[2016-12-05] MEDS: ALPRAZolam 0.25 MG TABLET PO PRN (21:02)
[2016-12-06] MEDS: INSULIN REGULAR 100 UNIT/ML SUBCUT SCH ×2 (00:48→06:55)
[2016-12-06] MEDS: ALPRAZolam 0.25 MG TABLET PO PRN ×2 (01:21→20:24)
[2016-12-06 03:40] LABS: Basophils # 0.1 10*3/uL (0.0-0.2); Basophils % 1.1 % (0.0-0.8); Eosinophils % 0.5 % (0.00-10.9); Hematocrit 33.1 VOL% (42.0-52.0); Hemoglobin 10.7 GM/DL (14.0-18.0); Immature Granulocytes % 22.6 %; Immature Granulocytes Absolute 1.42 #; Lymphocytes # 0.6 10*3/uL (1.4-4.0); Lymphocytes % 9.5 % (21.2-54.2); Mean Corpuscular HGB Conc 32.3 GM/DL (32-36); Mean Corpuscular Hemoglobin 30 PG (27-34); Mean Corpuscular Volume 91.7 FL (87-102); Mean Platelet Volume 10.3 FL (9.6-12.0); Monocytes # 1.1 10*3/uL (0.11-0.8); Neutrophils % 48.3 % (38.7-73.9); Platelet Count 188 T/CUMM (130-400); Red Blood Count 3.61 MC/CUMM (3.8-5.5); Red Cell Distribution Width 14.5 % (9.3-17.3); White Blood Count 6.3 T/CUMM (4-12)
[2016-12-06 04:15] LABS: Band Neutrophils 2 % (0-10); Lymphocytes 21 % (20-55); Metamyelocytes 2 %; Myelocytes 3 %; Segmented Neutrophils 58 % (50-85); Total Cells Counted 100
[2016-12-06 04:16] LABS: Platelet Estimate Normal; Polychromasia Few
[2016-12-06 04:23] LABS: Albumin 1.9 G/DL (3.4-5.0); Calcium 7.7 MG/DL (8.5-10.1); Magnesium 2.1 MG/DL (1.8-2.4); Osmolality,Calculated 288.6 MOS/KG (273-304); Phosphorous 3.8 MG/DL (2.5-4.9); Total Protein 4.5 G/DL (6.4-8.3)
--- NOTE | 2016-12-06 08:01 | Oncology Progress Note ---
Assessment and Plan (1) Lymphoma Problem details: Needs IV access for chemo treatment Status: Acute Current Visit: Yes (2) Ascites Problem details: metastatic lymphoma with peritoneal disease Status: Acute Current Visit: Yes (3) Peritoneal carcinomatosis Status: Acute Current Visit: Yes (4) Lung metastases Status: Acute Current Visit: Yes (5) Malnutrition Status: Acute Current Visit: Yes (6) Shortness of breath Status: Acute Current Visit: Yes Oncology Subjective PN Interval history: Mr. Gonzalez is doing much better. He is ambulating around the room without assistance. I encouraged him to go in the hallway and see how his breathing does with that. We will discontinue his TPN today since he is now taking in good by mouth intake. Turn off his supplemental oxygen to be certain that he does not need this at home. I plan to convert him to Xarelto upon discharge but will continue with Lovenox for today. I've given him 2 weeks of 15 mg Xarelto samples and we'll write him a prescription for the 20 mg tomorrow to start when she finished a sample pack. His neutrophil count has decreased down to 3 today. I may recheck this tomorrow and give him 1 more dose of Neupogen if it is lower. He received 4 days of Neupogen previously. He has not required any transfusions. He has not had any fevers. We have come a long way from where we were at admission. Exam - Constitutional Vitals: Period Temp Pulse Resp BP Sys/Lutz Pulse Ox Last 24 Hr 96.4 F-97.5 F 88-105 20-24 119-134/71-80 92-98 General appearance: normal weight, no acute distress - Head Head Exam: Present: normocephalic, atraumatic - Eye Eye Exam: Present: EOMI Pupils: Present: PERRL - Respiratory Respiratory exam: Present: CTAB. Absent: wheezes - Cardiovascular Cardiovascular exam: Present: RRR. Absent: JVD, systolic murmur - GI/Abdominal GI/Abdominal exam: Present: soft. Absent: ascites, distended, mass - Neurological Exam Neurological exam: Present: alert, oriented X3 - Psychiatric Psychiatric exam: Present: normal affect, normal mood - Skin Skin exam: Present: warm, dry Results - Labs CBC & BMP: 12/06/16 03:29 12/06/16 03:29 Lab Results: I have reviewed the past 24 hour labs
[2016-12-06] MEDS: PANTOPRAZOLE 40 MG TABLET PO SCH (10:10)
[2016-12-06] MEDS: ENOXAPARIN 100 MG/ML SYRINGE SUBCUT SCH (10:10)
[2016-12-06] MEDS: NYSTATIN 500,000 UNIT/5 ML UDCUP SWISH/SWAL SCH ×3 (10:10→20:24)
--- NOTE | 2016-12-06 12:31 | Event Note ---
The patient has a Mediport requested for chemotherapy access for his lymphoma treatment. Procedure my office after calling and tell when it is and risk including infection, blood clots, injury to great vessels her heart, pneumothorax, etc. have all been discussed in detail and he wishes to proceed. Sunday morning is been requested but this time is not available in the operating room next week for me. We will probably set something up for another day before then. We will get this arranged and contact the floor back to schedule.
[2016-12-06] MEDS: TAMSULOSIN 0.4 MG CAPSULE PO SCH (20:24)
[2016-12-07] MEDS ORDERED: ALBUTEROL/IPRATROPIUM 3 ML NEB RESP TX ONE (06:00)
--- NOTE | 2016-12-07 08:25 | Oncology Progress Note ---
Assessment and Plan (1) Lymphoma Problem details: Needs IV access for chemo treatment Status: Acute Current Visit: Yes (2) Ascites Problem details: metastatic lymphoma with peritoneal disease Status: Acute Current Visit: Yes (3) Peritoneal carcinomatosis Status: Acute Current Visit: Yes (4) Lung metastases Status: Acute Current Visit: Yes (5) Malnutrition Status: Acute Current Visit: Yes (6) Shortness of breath Status: Acute Current Visit: Yes Oncology Subjective PN Interval history: My initial plan was to discharge Mr. Gonzalez today. However he needs a Mediport placed and given his recent diagnosis of extensive pulmonary emboli I was not comfortable doing this as an outpatient which require him being off of anticoagulation for at least 2-3 days. We held his Lovenox dose last night and he will have his Mediport placed today hopefully. We will again reviewing Lovenox this afternoon. If all is well today we will delay his discharge until tomorrow morning. At discharge I'll plan on placing him on Xarelto for his anticoagulation. He is due his next round of chemotherapy next week. Exam - Constitutional Vitals: Period Temp Pulse Resp BP Sys/Lutz Pulse Ox Last 24 Hr 97.1 F-97.8 F 84-92 18-20 121-134/76-92 90-96 Results - Labs CBC & BMP: 12/06/16 03:29 12/06/16 03:29 Quality Measures - VTE Contraindication to Pharmacological VTE Prophylaxis: Already on Theraputic Agent , No Prophylaxis Needed
[2016-12-07] MEDS ORDERED: HEPARIN 5,000 UNIT/1 ML VIAL ONE (12:12)
[2016-12-07] MEDS ORDERED: LIDOCAINE 1%/EPI INJ 20 ML VIAL ONE (12:12)
[2016-12-07] MEDS ORDERED: BUPIVACAINE MPF 0.25% /EPI 30 ML VIAL ONE (12:12)
[2016-12-07] MEDS ORDERED: PROPOFOL 200 MG/20 ML VIAL IV ONE (13:16)
[2016-12-07] MEDS ORDERED: LIDOCAINE 1% 5 ML VIAL ONE (13:16)
[2016-12-07] MEDS ORDERED: TISSUE ADHESIVE 1 EACH APPLICATOR TOP ONE (13:44)
--- NOTE | 2016-12-07 13:54 | Operative Note ---
Date of procedure: 12/07/16 Pre-op diagnosis: lymphoma Post-op diagnosis: same Procedure: PowerPort placement right subclavian vein under fluoroscopic guidance using cutdown technique Findings and technique: After informed consent was obtained the patient was brought the operating room and placed in spine position. After IV sedation was administered the patient's chest was prepped and draped in usual sterile fashion. Local anesthesia was infiltrated beneath the right clavicle where small transverse incision was made and sharp dissection carried down into the deltopectoral groove where a cephalic or pectoral vein branch was identified and encircled with silk ties. A small transverse venotomy was made in the catheter directly introduced and central venous circulation and advanced into the mid superior vena cava under fluoroscopy. The catheter was attached to the PowerPort which was positioned in a subcutaneous pocket made with gentle blunt and sharp dissection in the inferior aspect of the incision. Port was easily accessed aspirated and flushed and fluoroscopy once again used to check good positioning. Port was secured with Vicryl suture and the wing close the deep layer of interrupted 3-0 Vicryl subcutaneous suture and skin with a running 4 Vicryl subcuticular suture and tissue adhesive. He appeared to tolerate the procedure well and he did receive perioperative IV antibiotics. Anesthesia: MAC, local Surgeon / Physician: Geronimo Solano III. Estimated blood loss: minimal Specimens: none sent Condition: stable Disposition: PACU Results - Labs CBC & BMP: 12/06/16 03:29 12/06/16 03:29 Discharge Plan - Discharge Medications No Action Dexlansoprazole [Dexilant] 60 mg PO BEDTIME Finasteride [Proscar] 5 mg PO BEDTIME Promethazine Tab [Phenergan Tab] 25 mg PO Q6H PRN PRN Reason: Nausea Ondansetron Odt Tab [Zofran Odt] 4 mg PO Q6H PRN PRN Reason: Nausea Tamsulosin [Flomax] 0.4 mg PO BEDTIME Nebivolol [Bystolic] 5 mg PO BEDTIME Aspirin EC Tab 81 mg PO BEDTIME Ondansetron HCl [Zofran Tab] 8 mg PO Q8HR PRN PRN Reason: Nausea traMADol TAB [Ultram] 50 mg PO Q6H PRN PRN Reason: Pain - Follow Up or Referral - Forms/Instructions
[2016-12-07] MEDS ORDERED: fentaNYL 100 MCG/2 ML VIAL ONE (14:06)
[2016-12-07] MEDS ORDERED: MIDAZOLAM 2 MG/2 ML VIAL ONE (14:06)
[2016-12-07] MEDS ORDERED: LACTATED RINGERS 1,000 ML IV SCH (14:30)
--- NOTE | 2016-12-07 14:42 | Anesthesia ---
Anesthesia Post OP - Post Ansesthetic Evaluation Patient seen in post op: Yes Resp: within normal limits CV: within normal limits Mental: within normal limits Temp: within normal limits [id number]: within normal limits Nausea and Vomiting: within normal limits Pain: within normal limits
[2016-12-07] MEDS: NYSTATIN 500,000 UNIT/5 ML UDCUP SWISH/SWAL SCH ×3 (14:53→20:29)
--- NOTE | 2016-12-07 14:56 | Interventional Radiology Rpt ---
Exam: IR fluoro guide cv cath Date: 12/07/2016 12:00 AM Comparison: None Indication: Mediport catheter placement Technique: Fluoroscopy time of 2.9 minutes documented. Single AP film obtained. Findings: Insertion of right Mediport catheter with tip in SVC. Left arm PICC line persists with tip in SVC. Impression: Insertion of right Mediport catheter with tip in SVC. PROCEDURE INTERPRETED AT [facility] DEPARTMENT OF RADIOLOGY Final Report Signed by: Dr. Elaine Burch
[2016-12-07] MEDS: PANTOPRAZOLE 40 MG TABLET PO SCH (15:05)
[2016-12-07] MEDS: ENOXAPARIN 100 MG/ML SYRINGE SUBCUT SCH (18:02)
[2016-12-07] MEDS: TAMSULOSIN 0.4 MG CAPSULE PO SCH (20:29)
[2016-12-07] MEDS: ALPRAZolam 0.25 MG TABLET PO PRN (20:29)
[2016-12-08] MEDS: ENOXAPARIN 100 MG/ML SYRINGE SUBCUT SCH (05:18)
[2016-12-08 05:27] LABS: Basophils # 0.1 10*3/uL (0.0-0.2); Basophils % 1.3 % (0.0-0.8); Hematocrit 34.9 VOL% (42.0-52.0); Hemoglobin 11.1 GM/DL (14.0-18.0); Immature Granulocytes % 10.5 %; Lymphocytes # 0.6 10*3/uL (1.4-4.0); Lymphocytes % 14.7 % (21.2-54.2); Mean Corpuscular HGB Conc 31.8 GM/DL (32-36); Mean Corpuscular Hemoglobin 29 PG (27-34); Mean Corpuscular Volume 90.6 FL (87-102); Mean Platelet Volume 9.9 FL (9.6-12.0); Monocytes # 0.6 10*3/uL (0.11-0.8); Monocytes % 14.9 % (1.7-12.7); NRBC # 0.09 10*3/uL; Neutrophils # 2.2 10*3/uL (1.4-7.4); Neutrophils % 57.6 % (38.7-73.9); Platelet Count 259 T/CUMM (130-400); Red Blood Count 3.85 MC/CUMM (3.8-5.5); Red Cell Distribution Width 14.6 % (9.3-17.3); White Blood Count 3.8 T/CUMM (4-12)
[2016-12-08 06:20] LABS: Band Neutrophils 2 % (0-10); Hypochromasia Slight; Lymphocytes 5 % (20-55); Macrocytosis 1+; Myelocytes 1 %; Platelet Estimate Adequate; Segmented Neutrophils 81 % (50-85); Total Cells Counted 100
[2016-12-08] MEDS: NYSTATIN 500,000 UNIT/5 ML UDCUP SWISH/SWAL SCH (08:16)
[2016-12-08] MEDS: PANTOPRAZOLE 40 MG TABLET PO SCH (08:16)
--- NOTE | 2016-12-08 08:58 | Discharge Summary ---
Hospital Course - Hospital Course Hospital Course: Mr. Gonzalez is a 61-year-old white male with newly diagnosed aggressive non- Hodgkin's lymphoma who is admitted to the hospital 2 weeks ago to urgently began chemotherapy due to rapidly worsening symptoms. He was treated with Rituxan, Adriamycin, Cytoxan, and steroids. I held the vincristine due to his complete bowel shutdown due to lymphoma involvement of his peritoneal surfaces. He tolerated chemotherapy well. His hospital course was complicated by poor by mouth intake, ileus, deconditioning, and neutropenia. He is now doing much better. We did incidentally find pulmonary emboli and a now doing anticoagulation. His shortness of breath has improved significantly with anticoagulation. He will go home today and continue to weeks of Xarelto at 15 mg twice a day. He was then converted to 20 mg daily. He needs to be scheduled to see me next Sunday for his next course of chemotherapy. He had his Mediport placed yesterday. I plan to use full strength CHOPR chemotherapy starting next week. He'll also receive Neulasta with this treatment since he developed significant neutropenia with his most recent chemotherapy even at reduced doses. He was on TPN for just over 7 days while he was in the hospital this is now been discontinued due to his improved by mouth intake. 1. Please make an appointment to see me on December 13 that morning with CBC, CMP, and LDH. - Time spent with patient Time with patient DS: Greater than 30 minutes Diagnosis - Discharge Diagnosis (1) Lymphoma Status: Acute (2) Ascites Status: Acute (3) Peritoneal carcinomatosis Status: Acute (4) Lung metastases Status: Acute (5) Malnutrition Status: Acute (6) Shortness of breath Status: Acute Discharge Plan - Discharge Data Disposition: Disch To Home/Self Care Condition at Discharge: Stable Discharge Diet: advance to your usual diet Activity: resume usual activities as tolerated Hygiene: no restrictions Weight Bearing at Discharge: full weight bearing Driving: no restrictions - Discharge Medications New Rivaroxaban [Xarelto] 20 mg PO DAILY W/BREAKFAST #30 tablet ALPRAZolam [Xanax] 1 - 2 tablet PO Q4H PRN #40 tablet PRN Reason: Anxiety No Action Dexlansoprazole [Dexilant] 60 mg PO BEDTIME Finasteride [Proscar] 5 mg PO BEDTIME Promethazine Tab [Phenergan Tab] 25 mg PO Q6H PRN PRN Reason: Nausea Ondansetron Odt Tab [Zofran Odt] 4 mg PO Q6H PRN PRN Reason: Nausea Tamsulosin [Flomax] 0.4 mg PO BEDTIME Nebivolol [Bystolic] 5 mg PO BEDTIME Aspirin EC Tab 81 mg PO BEDTIME Ondansetron HCl [Zofran Tab] 8 mg PO Q8HR PRN PRN Reason: Nausea traMADol TAB [Ultram] 50 mg PO Q6H PRN PRN Reason: Pain - Follow Up or Referral - Forms/Instructions Exam - Constitutional Vitals: Period Temp Pulse Resp BP Sys/Lutz Pulse Ox Last 24 Hr 96.7 F-98.1 F 82-117 12-20 102-132/59-85 92-99 Discharge Results Labs on day of discharge: Labs from last 24 hours 12/08/16 05:05 WBC 3.8 L D RBC 3.85 Hgb 11.1 L Hct 34.9 L MCV 90.6 MCH 29 MCHC 31.8 L RDW 14.6 Plt Count 259 D MPV 9.9 Neut % (Auto) 57.6 Lymph % (Auto) 14.7 L [place] % (Auto) 14.9 H Eos % (Auto) 1.0 Baso % (Auto) 1.3 H Neut # (Auto) 2.2 Lymph # (Auto) 0.6 L [place] # (Auto) 0.6 Eos # (Auto) 0.0 Baso # (Auto) 0.1 Total Counted 100 Immature Gran % 10.5 Nucleated RBC % 2.4 Immature Gran # 0.40 Segmented Neutrophils 81 Band Neutrophils 2 Lymphocytes 5 L Monocytes 11 Myelocytes 1 Nucleated RBCs # 0.09 Platelet Estimate Adequate Hypochromasia Slight Macrocytosis 1+ DS: Provider Date of admission: 11/21/16 11:00 Primary care physician: Jonah Gibbons Attending physician on admission: Dami Byers MD Consults: 11/21/16 10:27 Consult to Dietitian [CONS] Routine Reason for Dietitian: Dietary Consult 11/21/16 12:08 Consult to Pharmacy [CONS] Routine Reason for Pharmacy Consult: Adjust Meds Renal Funct 11/21/16 16:18 Consult to Dietitian [CONS] Routine Reason for Dietitian: Dietary Consult Consult Comment: decreased appetite 20lbs weight loss in 2 weeks 11/23/16 06:15 Consult to Physical Therapy [CONS] Routine Reason for Physical Therapy: Evaluate and Treat 11/25/16 09:59 Consult to Dietitian [CONS] Routine Reason for Dietitian: TPN/PPN-Initiate/Manage 12/06/16 09:20 Consult to Physician [CONS] Routine Comment: Evaluate for outpt port placement. Consulting Provider: Geronimo Solano III. 12/06/16 12:08 Consult to Case Mgmt/Social Srvs [CONS] Routine Reason for Case Mgmt/Social Srvs: Discharge Planning Consult Comment: rollator walker at discharge. 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
[2016-12-08 09:03] VITALS: BP 138/84
[2016-12-08] MEDS ORDERED: FILGRASTIM 480 MCG/0.8 ML SYRINGE SUBCUT ONE (10:00)
== END 2016-12-08 11:05 | disposition home or self-care (01) | DRG 840 ==
LOC: N.4E 11:00
PROVIDERS: ADMIT Specialist; ATTEND Specialist

== ENCOUNTER 2017-04-23 10:51 | Inpatient (IN) ==
[2017-04-23] MEDS ORDERED: traMADol 50 MG TABLET PO PRN (11:28)
[2017-04-23] MEDS ORDERED: ACETAMINOPHEN 325 MG TABLET PO PRN (11:28)
[2017-04-23] MEDS ORDERED: MYLANTA/LIDO VISC 2:1 300 ML BOTTLE SWISH/SPIT PRN (11:28)
[2017-04-23] MEDS ORDERED: diphenhydrAMINE CAP 25 MG CAPSULE PO PRN (11:28)
[2017-04-23] MEDS ORDERED: ONDANSETRON 4 MG/2 ML VIAL IV PRN (11:28)
[2017-04-23] MEDS ORDERED: ALUMINUM/MAGNES/SIMETH MAX STR 30 ML UDCUP PO PRN (11:28)
[2017-04-23] MEDS ORDERED: chlorproMAZINE INJ 50 MG in SODIUM CHLORIDE 0.9% 100 ML IV PRN (11:28)
[2017-04-23] MEDS ORDERED: LOPERAMIDE 2 MG CAPSULE PO PRN ×2 (11:28)
[2017-04-23] MEDS ORDERED: BENZTROPINE 2 MG/2 ML AMP IV PRN (11:28)
[2017-04-23] MEDS ORDERED: TEMAZEPAM 7.5 MG CAPSULE PO PRN (11:28)
[2017-04-23] MEDS ORDERED: chlorproMAZINE INJ 25 MG in SODIUM CHLORIDE 0.9% 100 ML IV PRN (11:28)
[2017-04-23] MEDS ORDERED: guaiFENesin 200 MG/10 ML UDCUP PO PRN (11:28)
[2017-04-23] MEDS ORDERED: MYLANTA/LIDO VISC 2:1 300 ML BOTTLE SWISH/SWAL PRN (11:28)
[2017-04-23] MEDS ORDERED: MAGNESIUM HYDROXIDE SUSP 30 ML UDCUP PO PRN (11:28)
[2017-04-23] MEDS ORDERED: chlorproMAZINE 25 MG TABLET PO PRN (11:28)
[2017-04-23] MEDS ORDERED: PROMETHAZINE INJ 25 MG in SODIUM CHLORIDE 0.9% 50 ML IV PRN (11:28)
[2017-04-23] MEDS ORDERED: SODIUM CHLORIDE 0.9% 250 ML IV PRN (11:52)
[2017-04-23] MEDS ORDERED: CLINDAMYCIN INJ 450 MG in SODIUM CHLORIDE 0.9% 100 ML IV SCH (12:00)
[2017-04-23] MEDS: MEROPENEM 500 MG in SODIUM CHLORIDE 0.9% 100 ML IV SCH ×2 (13:00→20:40)
[2017-04-23] MEDS: VANCOMYCIN INJ 1,250 MG in SODIUM CHLORIDE 0.9% 250 ML IV SCH (13:37)
--- NOTE | 2017-04-23 14:15 | General Surgery Consult Note ---
Assessment and Plan - Time spent with patient Time spent with patient: Less than 30 minutes (1) Infected venous access port Status: Acute Assessment and plan: This appears to be infected. It is unlikely to clear up with antibiotics alone. Fortunately he does not appear septic but he is very neutropenic and thrombocytopenic. He has platelets ordered. Since he is not acutely ill I think we can hold off today and replace his platelets and try to optimize him better for surgery. Current Visit: Yes History of Present Illness Chief complaint: Infected Mediport History of present illness: Mr. Gonzalez is a 61 year old male Who over several days has had increased redness and swelling around his port site in his right and clavicular region. It is not been that painful. He does not think that he has had fever or chills. He has was noted by Dr. Melendez to be very neutropenic. He is also thrombocytopenic. His last chemotherapy was a couple weeks ago. Home Medications Medication Instructions Recorded Confirmed Type Finasteride [Proscar] 5 mg PO BEDTIME 11/03/16 04/20/17 History Nebivolol [Bystolic] 5 mg PO BEDTIME 11/03/16 04/20/17 History Tamsulosin [Flomax] 0.4 mg PO BEDTIME 11/03/16 04/20/17 History Ondansetron HCl [Zofran Tab] 8 mg PO Q8HR PRN 11/21/16 04/20/17 History Ondansetron Odt Tab [Zofran Odt] 4 mg PO Q6H PRN 11/21/16 04/20/17 History Promethazine Tab [Phenergan Tab] 25 mg PO Q6H PRN 11/21/16 04/20/17 History ALPRAZolam [Xanax] 1 - 2 tablet PO Q4H PRN #40 tablet 12/08/16 04/20/17 Rx Dabigatran [Pradaxa] 2 capsule PO BID 04/20/17 04/20/17 History Pantoprazole Tab [Protonix Tab] 40 mg PO DAILY 04/20/17 04/20/17 History Sennosides/Docusate Sodium 1 capsule PO DAILY 04/20/17 04/20/17 History [Senna-S Tablet] Allergies Allergy/AdvReac Type Severity Reaction Status Date / Time No Known Allergies Allergy Verified 11/19/16 09:34 Medical,Surgical,& Family Hx - Medical History Cardio: History of: Hypertension Psychological: No history of: Anxiety Disorders, Bipolar Disorder, Depression, Schizophrenia Neurology: History of: Vertigo No history of: Seizures HEENT: History of: Eye Problem (Wears glasses) Genitourinary: History of: Kidney Stones, Prostate Problems (Enlarged prostate) Gastrointestinal: History of: GERD, Liver Problems (Fatty Liver), GI Problems ( Abdominal pain; Abnormal CT scan) Musculoskeletal: History of: Degenerative Disk Disease (L1 L2) Reproductive: No histroy: Reproductive Cancer Other: History of: Cancer (RIGHT kidney) No history of: Anesthesia Reactions - Surgical History Cardiac Surgeries: Patient Denies: Cardiac Catheterization Thoracic Surgeries: Surgical HX of;: Nephrectomy (RIGHT partial 5 years ago at [facility]) HEENT Surgeries: Patient denies: Eye Surgery, Tonsilectomy & Adenoidectomy Abdominal Surgeries: Surgical HX of: Abdominal Surgery, Colonoscopy, EGD, Hernia Repair (Inquinal 1978) Patient denies: Appendectomy, Cholecystectomy Reproductive Surgeries: Surgical HX of;: Genitourinary Surgery Orthopedic Surgeries: Patient denies;: Orthopedic Surgery - Family History Family History: Reports;: Family Cancer (Father (prostate) Son (testicular)), Family Hypertension (MOther), Family Stroke (Mother) Denies;: Family Anesthesia Reaction, Family Diabetes, Family Heart Disease, Family Psychiatric Problems - Social History Smoking Status: Never smoker - Constitutional Constitutional: Present: fever(s). Absent: anorexia, chills - Cardiovascular Cardiovascular: Absent: chest pain at rest, dyspnea - Respiratory Respiratory: Absent: dyspnea - Gastrointestinal Gastrointestinal: Absent: abdominal pain Exam - Constitutional Vitals: Period Temp Pulse Resp BP Sys/Lutz Pulse Ox Last 24 Hr 98.2 F 103 20 108/71 93 General appearance: no acute distress - Head Head exam: Present: normocephalic - Eye Eye exam: Absent: scleral icterus - ENT Mouth exam: Present: normal voice - Neck Neck exam: Present: trachea midline - Respiratory Respiratory exam: Present: clear to auscultation bilaterally, other (The port is indurated with erythema over the port and surrounding it over about a 3 x 4 cm area. There is no fluctuance.). Absent: accessory muscle use - Cardiovascular Cardiovascular exam: Present: RRR Results - Labs Lab Results: I have reviewed the past 24 hour labs
[2017-04-23] MEDS ORDERED: ACETAMINOPHEN 500 MG TABLET PO ONE (14:55)
[2017-04-23] MEDS ORDERED: diphenhydrAMINE CAP 50 MG CAPSULE PO ONE (14:55)
[2017-04-23] MEDS ORDERED: PROMETHAZINE 25 MG TABLET PO PRN (15:17)
[2017-04-23] MEDS ORDERED: ONDANSETRON 4 MG TABLET PO PRN (15:24)
--- NOTE | 2017-04-23 16:48 | Oncology History&Physical ---
Assessment and Plan (1) Weakness of both lower extremities Status: Acute Current Visit: No (2) Lymphoma malignant, large cell Status: Acute Current Visit: No (3) Infected venous access port Status: Acute Assessment and plan: - Start Vanc and Merrme - Consult surgery - Blood Cultures - Give irradiated platelets - He received Neulasta last week Current Visit: Yes History of Present Illness History of present illness: Mr. 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 He is severely pancytopenic from this treatment and was getting lab in clinic today when his notified me of his Mediport being red and inflamed. Upon evaluation the Mediport did have an area of induration and erythema located around this. I did not feel an obvious fluctuance but there is strong concern for infection. He appears nontoxic. His white count remains practically 0. His platelet count is only 19,000. We will admit him to the hospital today for surgical evaluation of the Mediport and transfusion of platelets. We will place him on vancomycin and Merrem. Home Medications Medication Instructions Recorded Confirmed Type Finasteride [Proscar] 5 mg PO BEDTIME 11/03/16 04/23/17 History Nebivolol [Bystolic] 5 mg PO BEDTIME 11/03/16 04/23/17 History Tamsulosin [Flomax] 0.4 mg PO BEDTIME 11/03/16 04/23/17 History Ondansetron HCl [Zofran Tab] 8 mg PO Q8HR PRN 11/21/16 04/23/17 History Ondansetron Odt Tab [Zofran Odt] 4 mg PO Q6H PRN 11/21/16 04/23/17 History Promethazine Tab [Phenergan Tab] 25 mg PO Q6H PRN 11/21/16 04/23/17 History ALPRAZolam [Xanax] 1 - 2 tablet PO Q4H PRN #40 tablet 12/08/16 04/23/17 Rx Dabigatran [Pradaxa] 2 capsule PO BID 04/20/17 04/23/17 History Pantoprazole Tab [Protonix Tab] 40 mg PO DAILY 04/20/17 04/23/17 History Sennosides/Docusate Sodium 1 capsule PO DAILY 04/20/17 04/23/17 History [Senna-S Tablet] Allergies Allergy/AdvReac Type Severity Reaction Status Date / Time No Known Allergies Allergy Verified 11/19/16 09:34 Medical,Surgical,& Family Hx - Medical History Cardio: History of: Hypertension Psychological: No history of: Anxiety Disorders, Bipolar Disorder, Depression, Schizophrenia Neurology: History of: Vertigo No history of: Seizures HEENT: History of: Eye Problem (Wears glasses) Genitourinary: History of: Kidney Stones, Prostate Problems (Enlarged prostate) Gastrointestinal: History of: GERD, Liver Problems (Fatty Liver), GI Problems ( Abdominal pain; Abnormal CT scan) Musculoskeletal: History of: Degenerative Disk Disease (L1 L2) Reproductive: No histroy: Reproductive Cancer Other: History of: Cancer (RIGHT kidney) No history of: Anesthesia Reactions - Surgical History Cardiac Surgeries: Patient Denies: Cardiac Catheterization Thoracic Surgeries: Surgical HX of;: Nephrectomy (RIGHT partial 5 years ago at [facility]) HEENT Surgeries: Patient denies: Eye Surgery, Tonsilectomy & Adenoidectomy Abdominal Surgeries: Surgical HX of: Abdominal Surgery, Colonoscopy, EGD, Hernia Repair (Inquinal 1978) Patient denies: Appendectomy, Cholecystectomy Reproductive Surgeries: Surgical HX of;: Genitourinary Surgery Orthopedic Surgeries: Patient denies;: Orthopedic Surgery - Family History Family History: Reports;: Family Cancer (Father (prostate) Son (testicular)), Family Hypertension (MOther), Family Stroke (Mother) Denies;: Family Anesthesia Reaction, Family Diabetes, Family Heart Disease, Family Psychiatric Problems - Social History Smoking Status: Never smoker 12 point system: reviewed and no additional remarkable complaints except as stated - Constitutional Constitutional: Present: fatigue, fever(s). Absent: chills - Cardiovascular Cardiovascular ROS IM: Absent: chest pain, edema - Gastrointestinal Gastrointestinal: Absent: abdominal pain Exam - Constitutional Vitals: Period Temp Pulse Resp BP Sys/Lutz Pulse Ox Last 24 Hr 97.6 F-98.6 F 91-103 18-20 108-133/67-75 93-93 General appearance: normal weight, no acute distress - Head Head Exam: Present: normocephalic, atraumatic - Eye Eye Exam: Present: EOMI Pupils: Present: PERRL - ENT ENT exam: Present: normal exam, normal oropharynx - Neck Neck exam: Absent: normal inspection, lymphadenopathy, thyromegaly - Respiratory Respiratory exam: Present: CTAB. Absent: wheezes - Cardiovascular Cardiovascular exam: Present: RRR. Absent: JVD - GI/Abdominal GI/Abdominal exam: Present: soft. Absent: ascites, distended, mass - Neurological Exam Neurological exam: Present: alert, oriented X3 - Psychiatric Psychiatric exam: Present: normal affect, normal mood - Skin Skin exam: Present: warm, dry, other (Indurated mediport in R upper chest) Quality Measures - VTE Contraindication to Pharmacological VTE Prophylaxis: High Risk of Bleeding
[2017-04-23] MEDS: LACTULOSE 20 GM/30 ML UDCUP PO PRN (18:10)
[2017-04-23] MEDS: FINASTERIDE 5 MG TABLET PO SCH (20:44)
[2017-04-23] MEDS: ALPRAZolam 0.25 MG TABLET PO PRN (20:44)
[2017-04-23] MEDS: TAMSULOSIN 0.4 MG CAPSULE PO SCH (20:44)
[2017-04-23] MEDS: NEBIVOLOL 5 MG TABLET PO SCH (20:45)
[2017-04-24] MEDS: VANCOMYCIN INJ 1,250 MG in SODIUM CHLORIDE 0.9% 250 ML IV SCH ×2 (01:06→14:20)
[2017-04-24] MEDS: MEROPENEM 500 MG in SODIUM CHLORIDE 0.9% 100 ML IV SCH ×3 (04:15→21:52)
[2017-04-24] MEDS ORDERED: ALBUTEROL 2.5 MG/3 ML NEB RESP TX ONE (07:00)
[2017-04-24] MEDS ORDERED: SODIUM CHLORIDE 0.9% 250 ML IV PRN (07:00)
[2017-04-24] MEDS ORDERED: IPRATROPIUM 500 MCG/2.5 ML NEB RESP TX ONE (07:00)
--- NOTE | 2017-04-24 07:43 | Oncology Progress Note ---
Assessment and Plan (1) Weakness of both lower extremities Status: Acute Current Visit: No (2) Lymphoma malignant, large cell Status: Acute Current Visit: No (3) Port or reservoir infection Status: Acute Current Visit: Yes Oncology Subjective PN Interval history: Mr. Gonzalez is doing well this morning. He received 1 unit of radiated platelets last night. I will recheck a CBC now. His Mediport is still indurated. It will most likely be removed later today by Dr. Solano. He is on vancomycin and Merrem for antimicrobial coverage. His blood cultures are pending. He is afebrile here. I have discussed his case with his dry roller at [facility] and they are aware that we are removing his Mediport. They would like to leave out any type of indwelling catheter at this time. I will place a PICC at the time of his next admission there. I anticipate he will be here for at least 1-2 more days while we keep a close eye on the Mediport surgical site once it removed. He received Neulasta last week so I do not see strong reason for Neupogen at this time. Exam - Constitutional Vitals: Period Temp Pulse Resp BP Sys/Lutz Pulse Ox Last 24 Hr 97.6 F-99.6 F 91-103 18-20 98-133/61-75 92-95 General appearance: normal weight, no acute distress - Head Head Exam: Present: normocephalic, atraumatic - Eye Eye Exam: Present: EOMI Pupils: Present: PERRL - ENT ENT exam: Present: normal exam, normal oropharynx - Neck Neck exam: Absent: lymphadenopathy, thyromegaly - Respiratory Respiratory exam: Present: CTAB. Absent: wheezes - Cardiovascular Cardiovascular exam: Present: RRR. Absent: JVD, systolic murmur - GI/Abdominal GI/Abdominal exam: Present: soft. Absent: ascites, distended, firm, mass - Neurological Exam Neurological exam: Present: alert, oriented X3 - Psychiatric Psychiatric exam: Present: normal affect, normal mood Quality Measures - VTE Contraindication to Pharmacological VTE Prophylaxis: High Risk of Bleeding
[2017-04-24 08:04] LABS: Eosinophils % 1.6 % (0.00-10.9); Hematocrit 22.1 VOL% (42.0-52.0); Hemoglobin 7.9 GM/DL (14.0-18.0); Immature Granulocytes % 4.7 %; Immature Granulocytes Absolute 0.03 #; Lymphocytes # 0.1 10*3/uL (1.4-4.0); Lymphocytes % 12.5 % (21.2-54.2); Mean Corpuscular HGB Conc 35.7 GM/DL (32-36); Mean Corpuscular Hemoglobin 31 PG (27-34); Mean Corpuscular Volume 86.7 FL (87-102); Mean Platelet Volume 10.2 FL (9.6-12.0); Monocytes # 0.2 10*3/uL (0.11-0.8); Monocytes % 26.6 % (1.7-12.7); Neutrophils # 0.4 10*3/uL (1.4-7.4); Neutrophils % 54.6 % (38.7-73.9); Red Blood Count 2.55 MC/CUMM (3.8-5.5); Red Cell Distribution Width 13.3 % (9.3-17.3)
[2017-04-24 08:10] LABS: White Blood Count 0.6 T/CUMM (4-12)
[2017-04-24 08:11] LABS: Platelet Count 33 T/CUMM (130-400)
[2017-04-24 08:29] LABS: Band Neutrophils 7 % (0-10); Lymphocytes 20 % (20-55); Segmented Neutrophils 53 % (50-85); Total Cells Counted 100
[2017-04-24 08:37] LABS: Hypochromasia Slight; Microcytosis 1+
[2017-04-24 08:38] LABS: Ovalocytes Slight; Platelet Estimate Decreased
[2017-04-24] MEDS: PANTOPRAZOLE 40 MG TABLET PO SCH (08:42)
[2017-04-24] MEDS ORDERED: PROPOFOL 200 MG/20 ML VIAL IV ONE (09:00)
[2017-04-24] MEDS ORDERED: LIDOCAINE 100 MG/5 ML SYRINGE ONE (09:00)
[2017-04-24] MEDS: SENNA 8.6 MG TABLET PO SCH ×2 (11:02→16:56)
[2017-04-24] MEDS ORDERED: BUPIVACAINE MPF 0.25% /EPI 30 ML VIAL ONE (12:13)
[2017-04-24] MEDS ORDERED: LIDOCAINE 1%/EPI INJ 20 ML VIAL ONE (12:14)
--- NOTE | 2017-04-24 13:03 | Operative Note ---
Date of procedure: 04/24/17 Pre-op diagnosis: Infected Mediport right chest Post-op diagnosis: same Procedure: Removal of infected PowerPort right subclavian vein Findings and technique: After informed consent was obtained patient was brought the operating room placed in supine position. IV sedation was administered the patient's right chest was prepped and draped in usual sterile fashion. Local anesthesia was infiltrated and his old incision opened up exposing the port. There was some free fluid but no gross purulence around the port. His was cultured. The port was removed along with a catheter without difficulty and the tract of the catheter oversewn with a [id number] 3-0 Vicryl suture. The cavity was irrigated out and the wound closed the deep layer of 3-0 Vicryl suture and the skin with interrupted 3-0 nylon sutures. Anesthesia: MAC, local Surgeon / Physician: Geronimo Solano III. Estimated blood loss: minimal Specimens: other (Cultures and PowerPort and catheter) Condition: stable Disposition: PACU Results - Labs CBC & BMP: 04/24/17 07:52 Discharge Plan - Discharge Medications No Action Finasteride [Proscar] 5 mg PO BEDTIME Promethazine Tab [Phenergan Tab] 25 mg PO Q6H PRN PRN Reason: Nausea Ondansetron Odt Tab [Zofran Odt] 4 mg PO Q6H PRN PRN Reason: Nausea Pantoprazole Tab [Protonix Tab] 40 mg PO DAILY Tamsulosin [Flomax] 0.4 mg PO BEDTIME Nebivolol [Bystolic] 5 mg PO BEDTIME Ondansetron HCl [Zofran Tab] 8 mg PO Q8HR PRN PRN Reason: Nausea ALPRAZolam [Xanax] 1 - 2 tablet PO Q4H PRN #40 tablet PRN Reason: Anxiety Dabigatran [Pradaxa] 2 capsule PO BID Sennosides/Docusate Sodium [Senna-S Tablet] 1 capsule PO DAILY - Follow Up or Referral - Forms/Instructions
[2017-04-24] MEDS ORDERED: SODIUM CHLORIDE 0.9% 100 ML IV ONE (13:14)
[2017-04-24] MEDS ORDERED: fentaNYL 100 MCG/2 ML VIAL ONE (13:14)
[2017-04-24] MEDS ORDERED: MIDAZOLAM 2 MG/2 ML VIAL ONE (13:14)
[2017-04-24] MEDS: NEBIVOLOL 5 MG TABLET PO SCH ×2 (13:37→20:47)
--- NOTE | 2017-04-24 13:45 | Anesthesia Post-Op ---
Anesthesia Post OP - Post Ansesthetic Evaluation Patient seen in post op: Yes Resp: within normal limits CV: within normal limits Mental: within normal limits Temp: within normal limits [id number]: within normal limits Nausea and Vomiting: within normal limits Pain: within normal limits
[2017-04-24] MEDS: LACTULOSE 20 GM/30 ML UDCUP PO PRN ×2 (16:56→20:44)
[2017-04-24] MEDS: TAMSULOSIN 0.4 MG CAPSULE PO SCH (20:46)
[2017-04-24] MEDS: FINASTERIDE 5 MG TABLET PO SCH (20:47)
[2017-04-24] MEDS: ALPRAZolam 0.25 MG TABLET PO PRN (20:47)
[2017-04-24 23:35] LABS: Basophils % 0.4 % (0.0-0.8); Eosinophils % 0.4 % (0.00-10.9); Hematocrit 28.4 VOL% (42.0-52.0); Immature Granulocytes % 22.2 %; Immature Granulocytes Absolute 0.57 #; Lymphocytes # 0.1 10*3/uL (1.4-4.0); Lymphocytes % 5.4 % (21.2-54.2); Mean Corpuscular HGB Conc 35.2 GM/DL (32-36); Mean Corpuscular Hemoglobin 30 PG (27-34); Mean Corpuscular Volume 84.3 FL (87-102); Mean Platelet Volume 10.5 FL (9.6-12.0); Monocytes # 0.6 10*3/uL (0.11-0.8); Monocytes % 22.6 % (1.7-12.7); Neutrophils # 1.3 10*3/uL (1.4-7.4); Red Blood Count 3.37 MC/CUMM (3.8-5.5); Red Cell Distribution Width 14.1 % (9.3-17.3); White Blood Count 2.6 T/CUMM (4-12)
[2017-04-24 23:38] LABS: Platelet Count 27 T/CUMM (130-400)
[2017-04-25 01:33] LABS: Band Neutrophils 8 % (0-10); Eosinophils 1 % (0-10); Lymphocytes 9 % (20-55); Metamyelocytes 3 %; Myelocytes 1 %; Platelet Estimate Decreased; Segmented Neutrophils 56 % (50-85)
[2017-04-25 01:34] LABS: Ovalocytes Slight; Total Cells Counted 99
[2017-04-25] MEDS: VANCOMYCIN INJ 1,250 MG in SODIUM CHLORIDE 0.9% 250 ML IV SCH ×2 (01:49→12:43)
[2017-04-25] MEDS: MEROPENEM 500 MG in SODIUM CHLORIDE 0.9% 100 ML IV SCH ×3 (04:16→20:56)
[2017-04-25 05:19] LABS: Basophils % 0.5 % (0.0-0.8); Eosinophils % 0.3 % (0.00-10.9); Hematocrit 28.7 VOL% (42.0-52.0); Hemoglobin 10.1 GM/DL (14.0-18.0); Immature Granulocytes % 26.9 %; Lymphocytes # 0.2 10*3/uL (1.4-4.0); Lymphocytes % 4.6 % (21.2-54.2); Mean Corpuscular HGB Conc 35.2 GM/DL (32-36); Mean Corpuscular Hemoglobin 29 PG (27-34); Mean Corpuscular Volume 83.7 FL (87-102); Mean Platelet Volume 12.5 FL (9.6-12.0); Monocytes # 0.7 10*3/uL (0.11-0.8); Monocytes % 19.6 % (1.7-12.7); Neutrophils # 1.8 10*3/uL (1.4-7.4); Neutrophils % 48.1 % (38.7-73.9); Red Blood Count 3.43 MC/CUMM (3.8-5.5); Red Cell Distribution Width 14.5 % (9.3-17.3); White Blood Count 3.7 T/CUMM (4-12)
[2017-04-25 05:26] LABS: Platelet Count 31 T/CUMM (130-400)
[2017-04-25 05:48] LABS: Albumin 2.5 G/DL (3.4-5.0); Bilirubin,Total 1.9 MG/DL (0.2-1.0); Calcium 8.4 MG/DL (8.5-10.1); Osmolality,Calculated 279.3 MOS/KG (273-304); Potassium 3.6 MMOL/L (3.5-5.1); Total Protein 4.9 G/DL (6.4-8.3)
[2017-04-25 06:04] LABS: Band Neutrophils 4 % (0-10); Lymphocytes 8 % (20-55); Promyelocytes 1 %; Segmented Neutrophils 65 % (50-85); Total Cells Counted 100
[2017-04-25 06:05] LABS: Hypochromasia 1+; Microcytosis 1+; Tear Drop Cells Slight
[2017-04-25 06:06] LABS: Platelet Estimate Decreased
--- NOTE | 2017-04-25 07:58 | Discharge Summary ---
Hospital Course - Hospital Course Hospital Course: Mr. 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 He most recently received high-dose methotrexate and cytarabine 2 weeks ago at [facility]. He presented to clinic 3 days ago here [place] for lab check and was found to have an infected Mediport. Given his severe pancytopenia he was admitted to the hospital for surgical evaluation and removal of the Mediport. His cultures have been no growth. His Mediport was removed yesterday with no obvious purulence around the port. The cultures of the actual port are still pending at this time. He was treated with 2 days of vancomycin and Merrem. He was already on p.o. Levaquin at home from [facility]. He will be discharged home today. His blood counts are slowly recovering. He did receive 1 unit of irradiated platelets and 2 units of irradiated red cells during his hospitalization. He received the same transfusions last week as well. I am assuming [facility] will have to dose reduce his chemotherapy given his severe pancytopenia with his most recent cycle. He will likely go back for his next round of chemotherapy next week. Home health will be arranged for biweekly lab checks on Sunday and . Since he had labs done this morning I think we can wait until next Sunday for his first home health lab check. These will need to be faxed to [facility] hematology further evaluation. I would also like them faxed to my clinic for my records and review as well. He does not need a scheduled follow-up with me since his visit here [place] are dictated by his schedule at [facility]. - Time spent with patient Time with patient DS: Greater than 30 minutes Diagnosis - Discharge Diagnosis (1) Weakness of both lower extremities Status: Acute (2) Lymphoma malignant, large cell Status: Acute (3) Port or reservoir infection Status: Acute Discharge Plan - Discharge Data Disposition: Disch To Home/Self Care Condition at Discharge: Stable Discharge Diet: advance to your usual diet Hygiene: no restrictions - Discharge Medications New Polyethylene Glycol Powder [Miralax] 17 gm PO BID #1 bottle Continue Finasteride [Proscar] 5 mg PO BEDTIME Promethazine Tab [Phenergan Tab] 25 mg PO Q6H PRN PRN Reason: Nausea Ondansetron Odt Tab [Zofran Odt] 4 mg PO Q6H PRN PRN Reason: Nausea Pantoprazole Tab [Protonix Tab] 40 mg PO DAILY Tamsulosin [Flomax] 0.4 mg PO BEDTIME Nebivolol [Bystolic] 5 mg PO BEDTIME Ondansetron HCl [Zofran Tab] 8 mg PO Q8HR PRN PRN Reason: Nausea ALPRAZolam [Xanax] 1 - 2 tablet PO Q4H PRN #40 tablet PRN Reason: Anxiety Discontinued Dabigatran [Pradaxa] 2 capsule PO BID Sennosides/Docusate Sodium [Senna-S Tablet] 1 capsule PO DAILY - Follow Up or Referral - Forms/Instructions Exam - Constitutional Vitals: Period Temp Pulse Resp BP Sys/Lutz Pulse Ox Last 24 Hr 97.4 F-98.9 F 97-120 16-20 109-135/60-91 88-100 Discharge Results Procedures and tests throughout hospitalization: Pending Orders 04/23/17 18:21 Blood Culture Routine 04/24/17 12:57 Abscess Culture Routine Anaerobic Culture Routine Labs on day of discharge: Labs from last 24 hours 04/25/17 04/25/17 04/24/17 04:21 04:21 23:12 WBC 3.7 L D 2.6 L D RBC 3.43 L 3.37 L D Hgb 10.1 L 10.0 L D Hct 28.7 L 28.4 L MCV 83.7 L 84.3 L MCH 29 30 MCHC 35.2 35.2 RDW 14.5 14.1 Plt Count 31 L* 27 L* MPV 12.5 H 10.5 Neut % (Auto) 48.1 49.0 Lymph % (Auto) 4.6 L 5.4 L Ector % (Auto) 19.6 H 22.6 H Eos % (Auto) 0.3 0.4 Baso % (Auto) 0.5 0.4 Neut # (Auto) 1.8 1.3 L Lymph # (Auto) 0.2 L 0.1 L Ector # (Auto) 0.7 0.6 Eos # (Auto) 0.0 0.0 Baso # (Auto) 0.0 0.0 Total Counted 100 99 Immature Gran % 26.9 22.2 Nucleated RBC % 0.0 0.0 Immature Gran # 1.00 0.57 Segmented Neutrophils 65 56 Band Neutrophils 4 8 Lymphocytes 8 L 9 L Monocytes 22 H 21 H Eosinophils 1 Metamyelocytes 3 Myelocytes 1 Promyelocytes 1 Nucleated RBCs # 0.00 0.00 Platelet Estimate Decreased Decreased Hypochromasia 1+ Microcytosis 1+ Tear Drop Cells Slight Ovalocytes Slight Sodium 141 Potassium 3.6 Chloride 108 H Carbon Dioxide 23 Anion Gap 13.6 BUN 9 Creatinine 0.50 L GFR Calculation 155 BUN/Creatinine Ratio 18.00 Glucose 93 Calculated Osmolality 279.3 Calcium 8.4 L Total Bilirubin 1.90 H AST 33 ALT 47 Alkaline Phosphatase 163 H Total Protein 4.9 L Albumin 2.5 L Globulin 2.4 Albumin/Globulin Ratio 1.0 L Blood Type Antibody Screen Crossmatch 04/24/17 04/24/17 07:52 07:52 WBC 0.6 L* RBC 2.55 L Hgb 7.9 L Hct 22.1 L MCV 86.7 L MCH 31 MCHC 35.7 RDW 13.3 Plt Count 33 L* MPV 10.2 Neut % (Auto) 54.6 Lymph % (Auto) 12.5 L Ector % (Auto) 26.6 H Eos % (Auto) 1.6 Baso % (Auto) 0.0 Neut # (Auto) 0.4 L Lymph # (Auto) 0.1 L Ector # (Auto) 0.2 Eos # (Auto) 0.0 Baso # (Auto) 0.0 Total Counted 100 Immature Gran % 4.7 Nucleated RBC % 0.0 Immature Gran # 0.03 Segmented Neutrophils 53 Band Neutrophils 7 Lymphocytes 20 Monocytes 20 H Eosinophils Metamyelocytes Myelocytes Promyelocytes Nucleated RBCs # 0.00 Platelet Estimate Decreased Hypochromasia Slight Microcytosis 1+ Tear Drop Cells Ovalocytes Slight Sodium Potassium Chloride Carbon Dioxide Anion Gap BUN Creatinine GFR Calculation BUN/Creatinine Ratio Glucose Calculated Osmolality Calcium Total Bilirubin AST ALT Alkaline Phosphatase Total Protein Albumin Globulin Albumin/Globulin Ratio Blood Type O POSITIVE Antibody Screen Negative Crossmatch See Detail Preliminary micro results at discharge 04/23/17 18:21 Blood Culture - Preliminary Blood No growth at 1 day 04/23/17 18:21 Blood Culture - Preliminary Blood No growth at 1 day DS: Provider Date of admission: 04/23/17 11:13 Primary care physician: Jonah Gibbons Attending physician on admission: Dami Byers MD Consults: 04/23/17 10:54 Consult to Physician [CONS] Routine Comment: Infected Mediport Consulting Provider: Geronimo Solano III. Consulting Provider Notified: Yes When should Consulting Provider be notified: Now Consult to Specialist Group: Surgery When should Consulting Provider be notified: Now Person Notified: LUCIAN Date Notified: 04/23/17 Time Notified: 11:29 04/24/17 07:39 Consult to Pharmacy [CONS] Routine Reason for Pharmacy Consult: Dose/Manage Vancomycin Discharging clinician: Dami Byers MD
--- NOTE | 2017-04-25 08:54 | Event Note ---
He feels well. He is afebrile with stable vital signs. His surgical site looks okay. I will leave that up to you as far as discharge and antibiotics. I would like to see him back in the clinic in a week or so and we can remove his sutures at that time. I would want to wait a couple of weeks at least before placing another Mediport. I did do cultures intraoperatively and these will probably be back in a day or 2.
--- NOTE | 2017-04-25 09:56 | Physician Query Form ---
CLICK EDIT DOCUMENT TO SELECT QUERY ANSWER --> OK --> SIGN Haritha Schmidt RN, CCDS Certified Clinical Ccu Nurse W) [phone] (f) [phone] [email or web address] PROVIDERS: Make your selection(s) from the choices in EACH section by typing an "x" and enter comments in the comment section. Please use your independent medical judgment in providing your response. This request does not imply that any particular answer is desired or expected. CLINICAL INDICATORS: (Providers should not edit this section) "Mr. 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 He is severely pancytopenic from this treatment" Based on the above, could you clarify the appropriate diagnosis, if significant , that supports the above abnormalities and additional evaluation, monitoring, and/or treatment rendered: ( ) Pancytopenia due to (x) Pancytopenia due to Chemotherapy ( ) Other, please specify: ( ) Clinically unable to determine COMMENTS: PLEASE ALSO DOCUMENT RESPONSE IN PROGRESS NOTES AND/OR DISCHARGE SUMMARY Use of terms such as suspected, likely, or probable (associated with a specific diagnosis that is being evaluated, monitored, or treated as if it exists) are acceptable and can be restated in the discharge summary if not ruled out. MTDD
[2017-04-25] MEDS: PANTOPRAZOLE 40 MG TABLET PO SCH (10:00)
[2017-04-25] MEDS: SENNA 8.6 MG TABLET PO SCH (10:00)
--- NOTE | 2017-04-25 11:26 | Pathology Report from [facility] ---
[facility] ACCESSION # : [id number] PATIENT NAME : Jemal Pozo ORDERING DR : ALTON JONES III, MD CLINICAL HX: Infected mediport POST-OP DX: Same SPECIMEN INFO: Mediport GROSS DESCRIPTION: Received in formalin labeled JEMAL POZO is a mediport catheter, submitted for gross exam only. DIAGNOSIS FOR JEMAL POZO: Mediport catheter, gross only. COLLECTED DATE: 04/24/2017 [facility] REPORT DATE: 04/25/2017 ELECTRONICALLY SIGNED BY: David Christensen M.D. 04/25/2017 - 10:25:25 [facility]ENTER[facility]el
[2017-04-25] MEDS: TAMSULOSIN 0.4 MG CAPSULE PO SCH (20:56)
[2017-04-25] MEDS: ALPRAZolam 0.25 MG TABLET PO PRN (20:56)
[2017-04-25] MEDS: FINASTERIDE 5 MG TABLET PO SCH (20:56)
[2017-04-25] MEDS: NEBIVOLOL 5 MG TABLET PO SCH (20:58)
[2017-04-26] MEDS: VANCOMYCIN INJ 1,250 MG in SODIUM CHLORIDE 0.9% 250 ML IV SCH ×2 (00:55→13:55)
[2017-04-26] MEDS: MEROPENEM 500 MG in SODIUM CHLORIDE 0.9% 100 ML IV SCH (04:29)
[2017-04-26] MEDS: SENNA 8.6 MG TABLET PO SCH (09:28)
[2017-04-26] MEDS: PANTOPRAZOLE 40 MG TABLET PO SCH (09:28)
[2017-04-26] MEDS ORDERED: POLYETHYLENE GLYCOL POWDER 17 GM PACK PO SCH (09:30)
[2017-04-26 11:49] VITALS: BP 110/71
== END 2017-04-26 16:00 | disposition home health service (06) | DRG 252 ==
LOC: N.4E 11:13
PROVIDERS: ADMIT Specialist; ATTEND Specialist

== ENCOUNTER 2017-07-05 10:50 | Inpatient (IN) ==
[2017-07-05] MEDS ORDERED: DILTIAZEM 50 MG/10 ML VIAL IV ONE (11:04)
[2017-07-05] MEDS ORDERED: MIDAZOLAM 10 MG/2 ML VIAL ONE (11:07)
[2017-07-05] MEDS ORDERED: DILTIAZEM 50 MG/10 ML VIAL IV STA (11:10)
[2017-07-05] MEDS ORDERED: SODIUM CHLORIDE 0.9% 1,000 ML IV STA (11:28)
--- NOTE | 2017-07-05 11:33 | Emergency Department Note ---
Arrival - Arrival Chief Complaint: Arrhythmia/Palpitations Stated Complaint: heart racing ED Nursing Triage Note: Patient to room via ems with c/o heart racing. Patient is in SVT. Patient states he did get SOB when it started. he denies cp. Mode of Arrival: Stretcher Source: Patient, Family, EMS Time Seen by Provider: 07/05/17 11:28 - History of Present Illness HPI Narrative: 62-year-old white male history of multiple myeloma and a history of paroxysmal SVT, was brought to the emergency room for any other episode of SVT. This is his fourth episode of having this in the last couple weeks. Patient is seen by oncologist in [place] and also followed by Dr. Byers Here and ready [place]. I have seen this patient prior or we had to cardiovert him here in the emergency room. Patient has since had 3 cardioversions prior to today and is supposed to have a EP study done that has not been set up yet. Patient has shortness of breath and palpitations otherwise no acute distress Allergies/Adverse Reactions: Allergies Allergy/AdvReac Type Severity Reaction Status Date / Time No Known Allergies Allergy Verified 07/05/17 11:02 Home Medications: Home Medications Medication Instructions Recorded Confirmed Type Finasteride [Proscar] 5 mg PO BEDTIME 11/03/16 07/01/17 History Tamsulosin [Flomax] 0.4 mg PO BEDTIME 11/03/16 07/01/17 History ALPRAZolam [Xanax] 1 - 2 tablet PO Q4H PRN #40 tablet 12/08/16 07/01/17 Rx Pantoprazole Tab [Protonix Tab] 40 mg PO DAILY 04/20/17 07/01/17 History Polyethylene Glycol Powder 17 gm PO BID #1 bottle 04/25/17 07/01/17 Rx [Miralax] Allopurinol 1 tablet PO DAILY 07/01/17 07/01/17 History Dabigatran [Pradaxa] 2 capsule PO BID 07/01/17 07/01/17 History Metoprolol Succinate Xl [Toprol Xl] 1 tablet PO DAILY 07/01/17 07/01/17 History Oxycodone HCl/Acetaminophen 0.5 - 1 tablet PO Q4-6H 07/01/17 07/01/17 History [Oxycodone-Acetaminophen 5-325] Zinc Oxide 20% Oint 1 applic TRANSDERM DIRECTED 07/01/17 07/01/17 History Zolpidem Tartrate [Ambien] 1 tablet PO BEDTIME PRN 07/01/17 07/01/17 History predniSONE TAB [PredniSONE] 2 tablet PO DAILY 07/01/17 07/01/17 History Review of System - Review of System 12 point system: reviewed and no additional remarkable complaints except as stated - Review of System Cardiovascular: Present: palpitations, orthopnea Medical,Surgical,& Family Hx - Medical History Cardio: History of: Hypertension, Cardiovascular Problems (Cardiomyopathy EF of 60% (June 2017)) Psychological: No history of: Anxiety Disorders, Bipolar Disorder, Depression, Schizophrenia Neurology: History of: Vertigo No history of: Seizures HEENT: History of: Eye Problem (Wears glasses) Genitourinary: History of: Kidney Stones, Prostate Problems (Enlarged prostate) Gastrointestinal: History of: GERD, Liver Problems (Fatty Liver), GI Problems ( Abdominal pain; Abnormal CT scan) Musculoskeletal: History of: Degenerative Disk Disease (L1 L2) Reproductive: No histroy: Reproductive Cancer Other: History of: Cancer No history of: Anesthesia Reactions - Surgical History Cardiac Surgeries: Patient Denies: Cardiac Catheterization Thoracic Surgeries: Surgical HX of;: Nephrectomy (RIGHT partial 5 years ago at [facility]) HEENT Surgeries: Patient denies: Eye Surgery, Tonsilectomy & Adenoidectomy Abdominal Surgeries: Surgical HX of: Abdominal Surgery, Colonoscopy, EGD, Hernia Repair ([place] 1978) Patient denies: Appendectomy, Cholecystectomy Reproductive Surgeries: Surgical HX of;: Genitourinary Surgery Orthopedic Surgeries: Patient denies;: Orthopedic Surgery - Family History Family History: Reports;: Family Cancer (Father (prostate) Son (testicular)), Family Hypertension (MOther), Family Stroke (Mother) Denies;: Family Anesthesia Reaction, Family Diabetes, Family Heart Disease, Family Psychiatric Problems - Social History Smoking Status: Never smoker Frequency of Alcohol Use: None Type of Drug Use: None Exam Vital Signs: Vital Signs Temperature 97.2 F L 07/05/17 10:50 Pulse Rate 161 H 07/05/17 10:50 Respiratory Rate 15 07/05/17 11:35 Blood Pressure 106/76 07/05/17 10:50 O2 Sat by Pulse Oximetry 98 07/05/17 10:53 - General General appearance: anxious, in distress - Head Head exam: Present: atraumatic - Eye Eye exam: Present: normal appearance, PERRL, EOMI - ENT ENT exam: Present: normal exam, normal oropharynx, mucous membranes moist - Neck Neck exam: Present: normal inspection, full ROM, trachea midline - Chest Chest inspection: Present: normal inspection, symmetric chest wall rise - Respiratory Respiratory exam: Present: normal lung sounds bilaterally - Cardiovascular Cardiovascular exam: Present: tachycardia, irregular rhythm - Abdominal Exam Abdominal exam: Present: soft, normal bowel sounds - Rectal Exam Rectal exam: Present: deferred - Extremities Exam Extremities exam: Present: normal capillary refill, pedal edema - Back Exam Back exam: Present: normal inspection, full ROM - Neurological Exam Neurological exam: Present: alert, oriented X3, CN II-XII intact - Psychiatric Psychiatric exam: Present: normal affect, normal mood, anxious - Skin Skin exam: Present: warm, dry, intact, normal color Course Course Narrative: Procedure note: Patient was advised the risks and benefits of electrocardioversion. Patient was used conscious sedation 5 mg Versed IV tolerated well patient was given 2 consecutive shocks 50 J per shock second attempt successfully converted patient to normal sinus rhythm - Consultations Consultation #1: Dr Nichols will come see pt for eval for EP study. He agreed to admit the patient to telemetry Time: 12:19 Results - Labs CBC & BMP: 07/05/17 11:15 07/05/17 11:15 Lab Results: I have reviewed the patients labs Critical Care Time Critical Care Time: Yes Total Critical Care Time: 60 Disposition Clinical Impression: Palpitations, SVT (supraventricular tachycardia), Status post electrocardioversion, Lymphoma malignant, large cell, Ventricular tachycardia Case discussed with: patient, patient's family Disposition: Still a Patient Condition: Guarded Time of Disposition: 12:22
[2017-07-05 11:37] LABS: Basophils % 0.4 % (0.0-0.8); Hematocrit 36.1 VOL% (42.0-52.0); Hemoglobin 11.8 GM/DL (14.0-18.0); Immature Granulocytes % 1.7 %; Immature Granulocytes Absolute 0.18 #; Lymphocytes # 0.3 10*3/uL (1.4-4.0); Lymphocytes % 2.9 % (21.2-54.2); Mean Corpuscular HGB Conc 32.7 GM/DL (32-36); Mean Corpuscular Hemoglobin 33 PG (27-34); Mean Corpuscular Volume 100.3 FL (87-102); Mean Platelet Volume 9.7 FL (9.6-12.0); Monocytes # 0.7 10*3/uL (0.11-0.8); Monocytes % 6.3 % (1.7-12.7); Neutrophils # 9.6 10*3/uL (1.4-7.4); Neutrophils % 88.7 % (38.7-73.9); Platelet Count 101 T/CUMM (130-400); Red Cell Distribution Width 21.9 % (9.3-17.3); White Blood Count 10.8 T/CUMM (4-12)
[2017-07-05 11:57] LABS: Free T4 (Free Thyroxine) 0.93 NG/DL (0.76-1.46); Magnesium 2.5 MG/DL (1.8-2.4)
[2017-07-05] MEDS ORDERED: MIDAZOLAM 10 MG/2 ML VIAL IV STA (11:58)
[2017-07-05 11:59] LABS: Albumin 2.8 G/DL (3.4-5.0); Bilirubin,Total 0.6 MG/DL (0.2-1.0); Calcium 8.2 MG/DL (8.5-10.1); Osmolality,Calculated 287.1 MOS/KG (273-304); Potassium 3.8 MMOL/L (3.5-5.1); Thyroid Stimulating Hormone 4.12 uIU/ml (0.358-3.74); Total Protein 5.1 G/DL (6.4-8.3); Troponin I Only 0.036 NG/ML (0.00-0.045)
--- NOTE | 2017-07-05 12:02 | XRay Report ---
Portable chest Date: 07/05/2017 Clinical history: Shortness of breath, cardioversion Comparison: 06/25/2017 Technique: Portable AP sitting chest Findings: The heart is normal in size with stable left arm PICC line. Calcified granulomata/nodes with minimal atelectasis. Artifactual densities with stable mediastinum. Degenerative changes are noted. Impression: Old healed granulomatous disease with chronic scarring. Minimal atelectasis. PROCEDURE INTERPRETED AT [facility] DEPARTMENT OF RADIOLOGY Final Report Signed by: Dr. Elaine Burch
[2017-07-05 12:22] LABS: Band Neutrophils 4 % (0-10); Lymphocytes 2 % (20-55); Segmented Neutrophils 92 % (50-85); Total Cells Counted 100
[2017-07-05 12:23] LABS: Macrocytosis 1+; Tear Drop Cells Few
[2017-07-05 12:24] LABS: Ovalocytes Few; Platelet Estimate Decreased
[2017-07-05] MEDS ORDERED: ACETAMINOPHEN 325 MG TABLET PO PRN (12:37)
[2017-07-05] MEDS ORDERED: MAGNESIUM SULF RIDER 2 GM in PREMIX 1 EACH IV PRN (12:37)
[2017-07-05] MEDS ORDERED: DOCUSATE SODIUM 100 MG CAPSULE PO PRN (12:37)
[2017-07-05] MEDS ORDERED: ONDANSETRON 4 MG/2 ML VIAL IV PRN (12:37)
[2017-07-05] MEDS ORDERED: MAGNESIUM SULF RIDER 4 GM in PREMIX 1 EACH IV PRN (12:37)
[2017-07-05] MEDS ORDERED: diphenhydrAMINE CAP 25 MG CAPSULE PO PRN (12:37)
[2017-07-05] MEDS ORDERED: ZALEPLON 5 MG CAPSULE PO PRN (12:37)
--- NOTE | 2017-07-05 12:44 | EKG Report ---
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
[2017-07-05 13:29] LABS: Apearance,Urine CLEAR (Clear); Bilirubin,Urine Negative (Negative); Blood, Urine Negative (Negative); Glucose,Urine (UA) Negative (Negative); Ketones,Urine Negative (Negative); Nitrite,Urine Negative (Negative); Protein,Urine Negative; RBC,Urine <1 /HPF (0-4); Urine Color Colorless (Yellow); Urine Specific Gravity 1.004 (1.001-1.035); Urine Urobilinogen < 2.0 EU/DL (0.2-1.0)
[2017-07-05] MEDS ORDERED: POLYETHYLENE GLYCOL POWDER 17 GM PACK PO PRN (14:55)
[2017-07-05] MEDS ORDERED: ZINC OXIDE 20% OINT 28.35 GM TUBE TOP PRN (14:55)
--- NOTE | 2017-07-05 16:29 | Cardiology History & Physical ---
Assessment and Plan - Time spent with patient Time spent with patient: Greater than 30 minutes (due to assessment, plan, and documentation) (1) SVT (supraventricular tachycardia) Status: Acute Assessment and plan: See plan of care listed below. Current Visit: Yes (2) Atrial flutter Status: Acute Assessment and plan: See plan of care listed below. Current Visit: Yes (3) Hypertension Status: Chronic Assessment and plan: See plan of care listed below. Current Visit: Yes (4) Lymphoma malignant, large cell Status: Acute Assessment and plan: See plan of care listed below. Current Visit: No (5) Chronic anticoagulation Status: Chronic Assessment and plan: See plan of care listed below. Current Visit: Yes (6) History of pulmonary embolus (PE) Status: Chronic Assessment and plan: See plan of care listed below. 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 Gonzalez is being seen in the Emergency Department, room #5. Mr. Gonzalez is a 62 y/o WM with a history of recurrent malignancy that is being treated at [facility]. Risk factors are significant for: age, hypertension, sedentary lifestyle. He also has a history of GERD, degenerative disk disease. Mr. 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 This has caused partial paralysis with loss of bowel or bladder function. He has also unable to walk but is able to move his legs. Mr. Gonzalez presents our facility today with tachycardia and heart rates in the 160s and 170s. He subsequently underwent cardioversion with 2 consecutive shocks 50 J per shock. He successfully converted to normal sinus rhythm after the second shock. This is the fourth occasion in the past 2 weeks that this has occurred. The first occurrence was on June 25, 2017 where he was also seen in the emergency room by Dr. Rodrigues. He is completely asymptomatic but was having his vital signs checked by his home health nurse and was noted to have a heart rate in the 170s and was subsequently brought to the emergency room via EMS. He received synchronous cardioversion with 100 J at that time. He saw his oncologist in [place] last week and was changed from Bystolic to Toprol-XL 25 mg p.o. daily. Since last Sunday, he and his have been checking his heart rate at home on a regular basis. Last , they noted an episode of tachycardia and went to the emergency room where he received a shock with 50 J. He then went home and early Sunday morning, noted an additional episode of tachycardia and again came to the emergency room where he received a shock with 50 J. Mr. Gonzalez tells me that he can sometimes feel like his heart beat is a little past and he sometimes has a nervous feeling but denies any chest pain, overt palpitations, shortness of breath, dizziness, lightheadedness, syncope, nausea, vomiting, diaphoresis. Upon arrival to our facility, Mr. Gonzalez was noted to have a heart rate in the 160s-170s in what appears to be an atrial flutter rhythm. His H&H is stable at 11.8 & 36.1 with platelet count 101. His potassium is 3.8, magnesium 2.5, creatinine 0.7, and BNP 223. Troponin is WNL. He is being admitted to cardiology service for sotalol load. If antiarrhythmic therapy is unsuccessful, he will likely require EP consultation with possible ablation. ASSESSMENT/PLAN: 1. SVT/AFLUTTER - He is currently maintaining a normal sinus rhythm with rates in the 90s-100s per ER underwriting director. He will be started on Sotalol 80mg po BID. We will replete his electrolytes as indicated and start him on Vitamin C 1000mg po BID. 2. HYPERTENSION - Currently borderline hypotensive. We are holding his toprol and starting him on Sotalol. We will continue to monitor and adjust accordingly. 3. LYMPHOMA MALIGNANT, LARGE CELL - He is followed by an Oncologist at [facility] in [place]. He has an appointment on Sunday, July 10, 2017 to be evaluated by his physician for an upcoming stem cell transplant. 4. CHRONIC ANTICOAGULATION - On Pradaxa 150mg PO BID. Per reports from patient' s , he is given platelet transfusions if his platelet count drops below 50 in order to continue on anticoagulant therapy. 5. HISTORY OF PE - Reportedly first diagnosed with PE in November 2016 which subsequently improved. He was then noted to have a second PE in March 2017. Upon recheck in May 2017, PE's had worsened. He is chronically anticoagulated with Pradaxa. Home Medications Medication Instructions Recorded Confirmed Type Finasteride [Proscar] 5 mg PO QAM 11/03/16 07/05/17 History Tamsulosin [Flomax] 0.4 mg PO QAM 11/03/16 07/05/17 History Pantoprazole Tab [Protonix Tab] 40 mg PO QAM 04/20/17 07/05/17 History Allopurinol 300 mg PO QAM 07/01/17 07/05/17 History Dabigatran [Pradaxa] 150 mg PO BID 07/01/17 07/05/17 History Metoprolol Succinate Xl [Toprol Xl] 25 mg PO QAM 07/01/17 07/05/17 History Zinc Oxide 20% Oint 1 applic TOP DAILY PRN 07/01/17 07/05/17 History Zolpidem Tartrate [Ambien] 10 mg PO BEDTIME PRN 07/01/17 07/05/17 History predniSONE TAB [PredniSONE] 40 mg PO QAM 07/01/17 07/05/17 History ALPRAZolam [Xanax] 0.25 - 0.5 mg PO Q4H PRN 07/05/17 07/05/17 History Polyethylene Glycol Powder 17 gm PO DAILY PRN 07/05/17 07/05/17 History [Miralax] oxyCODONE IR [Roxicodone] 2.5 mg PO Q4H PRN 07/05/17 07/05/17 History Allergies Allergy/AdvReac Type Severity Reaction Status Date / Time No Known Allergies Allergy Verified 07/05/17 11:02 Review of systems: - Constitutional: Present: weight loss, fatigue. As per HPI. Absent: anorexia, chills, daytime sleepiness, excessive sweating, fever(s), frequent falls, headache(s), increased appetite, lethargy, malaise, night sweats, stops breathing during sleep, weakness, weight gain - EENT Eyes: Present: As per HPI. Absent: blurry vision, diplopia, loss of vision Ears: Present: As per HPI. Absent: decreased hearing, ear discharge, ear pain Nose, mouth and throat: Present: As per HPI. Absent: dysphagia, epistaxis, headache(s), hoarseness, lip swelling, nasal congestion, neck mass, neck pain, sinus pressure, sore throat, throat swelling, tongue swelling, vertigo - Cardiovascular: Present: orthopnea, palpitations (occasional feeling of racing heartbeat), as per HPI. Absent: chest pain at rest, chest pain with activity, dyspnea, dyspnea on exertion, edema, claudication, diaphoresis, radiating jaw, neck or arm pain, lightheadedness, PND - Respiratory: Present: as per HPI. Absent: dyspnea, dyspnea on exertion, cough , hemoptysis, wheezing, snoring, pain on inspiration - Gastrointestinal: Present: As per HPI. Absent: abdominal pain, bloating, change in bowel habits, constipation, diarrhea, heartburn, hematemesis, hematochezia, loose stools, melena, nausea, vomiting - Genitourinary: Present: As per HPI. Absent: difficulty urinating, dysuria, flank pain, hematuria, nocturia, urinary frequency, urinary incontinence - Musculoskeletal: Present: As per HPI. Absent: arthralgias, back pain, joint swelling, limited range of motion, muscle cramps, muscle weakness, myalgias - Neurological: Present: abnormal gait, numbness, partial BLE paralysis with loss of bowel/bladder function, As per HPI. Absent: abnormal speech, behavioral changes, confusion, convulsions, disequilibrium, dizziness, focal weakness, frequent falls, headache(s), memory loss, paresthesias, radicular pain, syncope , tremor(s) - Psychiatric: Present: occasional nervousness, As per HPI. Absent: anxiety, confusion, depression, panic attacks - Endocrine: Present: As per HPI. Absent: cold intolerance, fatigue, heat intolerance, polydipsia, polyphagia - Hematologic/Lymphatic: Present: As per HPI. Absent: easy bleeding, easy bruising, lymphadenopathy Medical,Surgical,& Family Hx - Medical History Cardio: History of: Hypertension, Cardiovascular Problems (Cardiomyopathy EF of 60% (June 2017)) Psychological: No history of: Anxiety Disorders, Bipolar Disorder, Depression, Schizophrenia Neurology: History of: Vertigo No history of: Seizures HEENT: History of: Eye Problem (Wears glasses) Genitourinary: History of: Kidney Stones, Prostate Problems (Enlarged prostate) Gastrointestinal: History of: GERD, Liver Problems (Fatty Liver), GI Problems ( Abdominal pain; Abnormal CT scan) Musculoskeletal: History of: Degenerative Disk Disease (L1 L2) Reproductive: No histroy: Reproductive Cancer Other: History of: Cancer No history of: Anesthesia Reactions - Surgical History Cardiac Surgeries: Patient Denies: Cardiac Catheterization Thoracic Surgeries: Surgical HX of;: Nephrectomy (RIGHT partial 5 years ago at [facility]) HEENT Surgeries: Patient denies: Eye Surgery, Tonsilectomy & Adenoidectomy Abdominal Surgeries: Surgical HX of: Abdominal Surgery, Colonoscopy, EGD, Hernia Repair ([place] 1978) Patient denies: Appendectomy, Cholecystectomy Reproductive Surgeries: Surgical HX of;: Genitourinary Surgery Orthopedic Surgeries: Patient denies;: Orthopedic Surgery - Family History Family History: Reports;: Family Cancer (Father (prostate) Son (testicular)), Family Hypertension (MOther), Family Stroke (Mother) Denies;: Family Anesthesia Reaction, Family Diabetes, Family Heart Disease, Family Psychiatric Problems - Social History Smoking Status: Never smoker Frequency of Alcohol Use: None Type of Drug Use: None Marital Status: Lives With:: Spouse Functional capacity: wheelchair bound Cardiology Physical Exam - Constitutional Vitals: Vital Signs Temp Pulse Resp BP Pulse Ox 97.2 F L 161 H 15 106/76 98 07/05/17 10:50 07/05/17 10:50 07/05/17 11:35 07/05/17 10:50 07/05/17 10:53 Intake and Output 07/05/17 07/05/17 07/05/17 06:59 14:59 22:59 Intake Total 1000 / 1000 Balance 1000 / 1000 Intake: IV 1000 / 1000 Ns 1,000 ml @ 999 mls/hr 1000 / 1000 IV 1X ED BOLUS STA Rx#: [id number] Other: Weight 180 lb Patient Weight 07/06/17 06:59 Weight 180 lb Exam: General appearance: Appears well. Pleasant and cooperative. Overweight, no acute distress. Head exam: Present: normal inspection, normocephalic, atraumatic. Absent: hematoma, laceration Eye exam: Present: EOMI. Absent: conjunctival injection, nystagmus, periorbital swelling, scleral icterus, laceration to eyelids, jaundice Pupils: Present: PERRL. Absent: constricted, dilated, fixed, irregular, unequal ENT exam: Present: normal exam, normal external ear exam, mucous membranes moist. Neck exam: Present: normal inspection, midline trachea. Absent: masses, tenderness, carotid bruit Respiratory exam: Present: clear to auscultation bilaterally. Absent: accessory muscle use, chest wall tenderness, rales, rhonchi, wheezing. Cardiovascular exam: Present: regular rate and rhythm. Mild tachycardia. Absent : gallop, JVD, rubs, murmur GI/Abdominal exam: Present: normal bowel sounds, soft. Absent: distended, firm , tenderness. Extremities exam: Present: Impaired Gait, No Clubbing, No Cyanosis, Upper Extr. Pulses 2+, Lower Extr. Pulses 2+, No edema. 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 Capillary refill less than 3 seconds. Musculoskeletal: Present: No Fluid Collection, No Pain, Normal Range of Motion in BUE. Limited movement in BLE due to partial paralysis. Back exam: Present: normal inspection. Absent: muscle spasm, vertebral tenderness Neurological exam: Present: awake, alert, oriented X3, Moves all upper extremities well without hemiparesis or paralysis. Limited movement in BLE due to partial paralysis. Grossly intact without resting or essential tremor Psychiatric exam: Present: normal affect, normal mood Skin exam: Present: normal color, warm, dry, intact. Absent: cyanosis, diaphoretic, rash, urticaria Result/EKG - Labs CBC & BMP: 07/05/17 11:15 07/05/17 11:15 Lab Results: I have reviewed the past 24 hour labs Labs: Laboratory Results - last 24 hr 07/05/17 07/05/17 07/05/17 11:12 11:15 11:15 WBC 10.8 RBC 3.60 L Hgb 11.8 L Hct 36.1 L MCV 100.3 MCH 33 MCHC 32.7 RDW 21.9 H Plt Count 101 L MPV 9.7 Neut % (Auto) 88.7 H Lymph % (Auto) 2.9 L [place] % (Auto) 6.3 Eos % (Auto) 0.0 Baso % (Auto) 0.4 Neut # (Auto) 9.6 H Lymph # (Auto) 0.3 L [place] # (Auto) 0.7 Eos # (Auto) 0.0 Baso # (Auto) 0.0 Total Counted 100 Immature Gran % 1.7 Nucleated RBC % 0.0 Immature Gran # 0.18 Segmented Neutrophils 92 H Band Neutrophils 4 Lymphocytes 2 L Monocytes 2 Nucleated RBCs # 0.00 Platelet Estimate Decreased Immature Plt Fraction 0.0 Macrocytosis 1+ Tear Drop Cells Few Ovalocytes Few Sodium Potassium Chloride Carbon Dioxide Anion Gap BUN Creatinine GFR Calculation BUN/Creatinine Ratio Glucose Calculated Osmolality Calcium Magnesium 2.5 H Total Bilirubin AST ALT Alkaline Phosphatase Troponin I B-Natriuretic Peptide 223 H Total Protein Albumin Globulin Albumin/Globulin Ratio Free T4 0.93 TSH 3rd Generation Urine Color Urine Appearance Urine pH Ur Specific [place] Urine Protein Urine Glucose (UA) Urine Ketones Urine Blood Urine Nitrate Urine Bilirubin Urine Urobilinogen Urine Leukocytes Urine RBC Ur Culture Indicated? 07/05/17 07/05/17 11:15 13:00 WBC RBC Hgb Hct MCV MCH MCHC RDW Plt Count MPV Neut % (Auto) Lymph % (Auto) [place] % (Auto) Eos % (Auto) Baso % (Auto) Neut # (Auto) Lymph # (Auto) [place] # (Auto) Eos # (Auto) Baso # (Auto) Total Counted Immature Gran % Nucleated RBC % Immature Gran # Segmented Neutrophils Band Neutrophils Lymphocytes Monocytes Nucleated RBCs # Platelet Estimate Immature Plt Fraction Macrocytosis Tear Drop Cells Ovalocytes Sodium 142 Potassium 3.8 Chloride 107 Carbon Dioxide 28 Anion Gap 10.8 BUN 15 Creatinine 0.70 GFR Calculation 118 BUN/Creatinine Ratio 21.00 H Glucose 164 H Calculated Osmolality 287.1 Calcium 8.2 L Magnesium Total Bilirubin 0.60 AST 29 ALT 46 Alkaline Phosphatase 165 H Troponin I 0.036 B-Natriuretic Peptide Total Protein 5.1 L Albumin 2.8 L Globulin 2.3 Albumin/Globulin Ratio 1.2 Free T4 TSH 3rd Generation 4.120 H Urine Color Colorless Urine Appearance Clear Urine pH 6.0 Ur Specific [place] 1.004 Urine Protein Negative Urine Glucose (UA) Negative Urine Ketones Negative Urine Blood Negative Urine Nitrate Negative Urine Bilirubin Negative Urine Urobilinogen < 2.0 H Urine Leukocytes Negative Urine RBC <1 Ur Culture Indicated? Not indicated - EKG EKG results: interpreted by me, sinus rhythm
[2017-07-05] MEDS: SOTALOL 80 MG TABLET PO SCH ×2 (16:46→21:15)
[2017-07-05] MEDS: PANTOPRAZOLE 40 MG TABLET PO SCH (16:46)
[2017-07-05] MEDS: DABIGATRAN 150 MG CAPSULE PO SCH (21:14)
[2017-07-05] MEDS: ASCORBIC ACID 500 MG TABLET PO SCH (21:15)
[2017-07-06 05:25] LABS: Basophils % 0.1 % (0.0-0.8); Hematocrit 31.1 VOL% (42.0-52.0); Hemoglobin 10.2 GM/DL (14.0-18.0); Immature Granulocytes % 1.7 %; Immature Granulocytes Absolute 0.12 #; Lymphocytes # 0.2 10*3/uL (1.4-4.0); Lymphocytes % 2.8 % (21.2-54.2); Mean Corpuscular HGB Conc 32.8 GM/DL (32-36); Mean Corpuscular Hemoglobin 33 PG (27-34); Mean Corpuscular Volume 99.7 FL (87-102); Mean Platelet Volume 9.2 FL (9.6-12.0); Monocytes # 0.6 10*3/uL (0.11-0.8); Monocytes % 8.9 % (1.7-12.7); NRBC # 0.02 10*3/uL; Neutrophils # 6.2 10*3/uL (1.4-7.4); Neutrophils % 86.5 % (38.7-73.9); Platelet Count 102 T/CUMM (130-400); Red Blood Count 3.12 MC/CUMM (3.8-5.5); Red Cell Distribution Width 21.2 % (9.3-17.3); White Blood Count 7.2 T/CUMM (4-12)
[2017-07-06 05:52] LABS: Band Neutrophils 1 % (0-10); Hypochromasia 1+; Lymphocytes 5 % (20-55); Nucleated Red Blood Cells 1 (0-5); Ovalocytes Slight; Platelet Estimate Decreased; Segmented Neutrophils 85 % (50-85); Total Cells Counted 100
[2017-07-06 05:53] LABS: Macrocytosis 1+; Polychromasia Slight
[2017-07-06 06:01] LABS: Calcium 8.3 MG/DL (8.5-10.1); Magnesium 2.4 MG/DL (1.8-2.4); Risk Ratio 2.56; VLDL CHOLESTEROL 21.6 MG/DL
--- NOTE | 2017-07-06 07:40 | EKG Report ---
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
--- NOTE | 2017-07-06 07:42 | EKG Report ---
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
--- NOTE | 2017-07-06 07:51 | EKG Report ---
Stationary ECG Study [facility] Test Date: 07/06/2017 7:49:13 AM Pat Name: ANA MARÍA POZO Department: Room: 273 Gender: M Viner Operator: ROBEL : 1955 Requested by: Nyasia Robbins Order Number: [id number] Reading MD: JAMIN SAL Intervals [place] Rate: 75 P: 63 [place]: 137 QRS: -22 QRSD: 93 T: 77 QT: 387 QTc: 416 Interpretive Statements SINUS RHYTHM LEFT AXIS DEVIATION Electronically Signed On 07-06-17 15:59:27 CDT by JAMIN SAL [email or web address]
[2017-07-06] MEDS ORDERED: ALLOPURINOL 300 MG TABLET PO SCH (09:00)
[2017-07-06] MEDS ORDERED: FINASTERIDE 5 MG TABLET PO SCH (09:00)
[2017-07-06] MEDS ORDERED: TAMSULOSIN 0.4 MG CAPSULE PO SCH (09:00)
[2017-07-06] MEDS ORDERED: predniSONE 20 MG TABLET PO SCH (09:00)
[2017-07-06] MEDS: PANTOPRAZOLE 40 MG TABLET PO SCH (09:41)
[2017-07-06] MEDS: SOTALOL 80 MG TABLET PO SCH (09:41)
[2017-07-06] MEDS: DABIGATRAN 150 MG CAPSULE PO SCH (09:41)
[2017-07-06] MEDS: ASCORBIC ACID 500 MG TABLET PO SCH (09:41)
--- NOTE | 2017-07-06 10:25 | Cardiology Progress Note ---
Assessment and Plan - Time spent with patient Time spent with patient: Less than 30 minutes (1) SVT (supraventricular tachycardia) Status: Acute Assessment and plan: See plan of care listed below. Current Visit: Yes (2) Atrial flutter Status: Acute Assessment and plan: See plan of care listed below. Current Visit: Yes (3) Hypertension Status: Chronic Assessment and plan: See plan of care listed below. Current Visit: Yes (4) Lymphoma malignant, large cell Status: Acute Assessment and plan: See plan of care listed below. Current Visit: No (5) Chronic anticoagulation Status: Chronic Assessment and plan: See plan of care listed below. Current Visit: Yes (6) History of pulmonary embolus (PE) Status: Chronic Assessment and plan: See plan of care listed below. Current Visit: Yes Cardiology - PN: Subj Interval history: Rehabilitation Therapist: new to Dr. Rodrigues SUMMARY: Mr. Gonzalez is a 62 y/o WM with a history of recurrent malignancy that is being treated at [facility]. He also has a history of GERD, degenerative disk disease, hypertension, and PE. Mr. 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 This has caused partial paralysis with loss of bowel or bladder function. He has also unable to walk but is able to move his legs. He presented to our facility on 07/05/17 with tachycardia and heart rates in the 160s-170s. He subsequently underwent cardioversion with 2 consecutive shocks 50 J per shock. He successfully converted to normal sinus rhythm after the second shock. This is the fourth occasion in the past 2 weeks that this has occurred. We were called to admit him from the ER. He has previously had several episodes of SVT, and presented in what appears to be an atrial flutter rhythm. Following cardioversion, he was started on sotalol 80mg po bid. We have been monitoring his QTC interval and it has remained WNL. He is chronically anticoagulated with Pradaxa. He was also started on Vitamin C 1000mg PO BID. Mr. Gonzalez is followed by an Oncologist at [facility] in [place]. He has an appointment on Monday, July 10, 2017 to be evaluated by his physician for an upcoming stem cell transplant. Labwork and vital signs have remained stable thus far. 2016 UPDATE: Mr. Gonzalez is doing well today. He remains in a normal sinus rhythm with well controlled rate. He is tolerating the Sotalol s difficulty. QTC remains WNL. We are checking daily EKGs. Mr. Gonzalez and his report they would like to be out of the hospital before Sunday as he has a follow up appointment with his oncologist in [place] to discuss a stem cell transplant. We will continue to monitor and plan for discharge soon as long as he continues to tolerate Sotalol therapy. ASSESSMENT/PLAN: 1. SVT/AFLUTTER - He is currently maintaining a normal sinus rhythm with rates in the 90s-100s per ER gambling monitor. He was started on Sotalol 80mg po BID and has had no further dysrhythmias. We will keep his electrolytes repleted and he has also been started on Vitamin C 1000mg po BID. 2. HYPERTENSION - Currently borderline hypotensive. We will continue to monitor and adjust accordingly. 3. LYMPHOMA MALIGNANT, LARGE CELL - He is followed by an Oncologist at [facility] in [place]. He has an appointment on Sunday, July 10, 2017 to be evaluated by his physician for an upcoming stem cell transplant. 4. CHRONIC ANTICOAGULATION - On Pradaxa 150mg PO BID. Per reports from patient' s , he is given platelet transfusions if his platelet count drops below 50 in order to continue on anticoagulant therapy. 5. HISTORY OF PE - Reportedly first diagnosed with PE in November 2016 which subsequently improved. He was then noted to have a second PE in March 2017. Upon recheck in May 2017, PE's had worsened. He is chronically anticoagulated with Pradaxa. Exam (Progress Note) - Constitutional Vitals: Period Temp Pulse Resp BP Sys/Lutz Pulse Ox Last 24 Hr 96.4 F-97.7 F 70-161 12-18 102-125/61-78 96-99 Exam: General appearance: Appears well. Pleasant and cooperative. Overweight, no acute distress. Head exam: Present: normal inspection, normocephalic, atraumatic. Absent: hematoma, laceration Eye exam: Present: EOMI. Absent: conjunctival injection, nystagmus, periorbital swelling, scleral icterus, laceration to eyelids, jaundice Pupils: Present: PERRL. Absent: constricted, dilated, fixed, irregular, unequal ENT exam: Present: normal exam, normal external ear exam, mucous membranes moist. Neck exam: Present: normal inspection, midline trachea. Absent: masses, tenderness, carotid bruit Respiratory exam: Present: clear to auscultation bilaterally. Absent: accessory muscle use, chest wall tenderness, rales, rhonchi, wheezing. Cardiovascular exam: Present: regular rate and rhythm. Mild tachycardia. Absent : gallop, JVD, rubs, murmur GI/Abdominal exam: Present: normal bowel sounds, soft. Absent: distended, firm , tenderness. Extremities exam: Present: Impaired Gait, No Clubbing, No Cyanosis, Upper Extr. Pulses 2+, Lower Extr. Pulses 2+, No edema. 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 Capillary refill less than 3 seconds. Musculoskeletal: Present: No Fluid Collection, No Pain, Normal Range of Motion in BUE. Limited movement in BLE due to partial paralysis. Back exam: Present: normal inspection. Absent: muscle spasm, vertebral tenderness Neurological exam: Present: awake, alert, oriented X3, Moves all upper extremities well without hemiparesis or paralysis. Limited movement in BLE due to partial paralysis. Grossly intact without resting or essential tremor Psychiatric exam: Present: normal affect, normal mood Skin exam: Present: normal color, warm, dry, intact. Absent: cyanosis, diaphoretic, rash, urticaria Result/EKG - Labs CBC & BMP: 07/06/17 04:27 07/06/17 04:27 Lab Results: I have reviewed the past 24 hour labs Labs: Laboratory Results - last 24 hr 07/05/17 07/05/17 07/05/17 11:12 11:15 11:15 WBC 10.8 RBC 3.60 L Hgb 11.8 L Hct 36.1 L MCV 100.3 MCH 33 MCHC 32.7 RDW 21.9 H Plt Count 101 L MPV 9.7 Neut % (Auto) 88.7 H Lymph % (Auto) 2.9 L [place] % (Auto) 6.3 Eos % (Auto) 0.0 Baso % (Auto) 0.4 Neut # (Auto) 9.6 H Lymph # (Auto) 0.3 L [place] # (Auto) 0.7 Eos # (Auto) 0.0 Baso # (Auto) 0.0 Total Counted 100 Immature Gran % 1.7 Nucleated RBC % 0.0 Immature Gran # 0.18 Segmented Neutrophils 92 H Band Neutrophils 4 Lymphocytes 2 L Monocytes 2 Nucleated RBCs Nucleated RBCs # 0.00 Platelet Estimate Decreased Immature Plt Fraction 0.0 Polychromasia Hypochromasia Macrocytosis 1+ Tear Drop Cells Few Ovalocytes Few Morphology Comment Sodium Potassium Chloride Carbon Dioxide Anion Gap BUN Creatinine GFR Calculation BUN/Creatinine Ratio Glucose Calculated Osmolality Calcium Magnesium 2.5 H Total Bilirubin AST ALT Alkaline Phosphatase Troponin I B-Natriuretic Peptide 223 H Total Protein Albumin Globulin Albumin/Globulin Ratio Triglycerides Cholesterol LDL Cholesterol VLDL Cholesterol HDL Cholesterol Heart Disease Risk Ratio Free T4 0.93 TSH 3rd Generation Urine Color Urine Appearance Urine pH Ur Specific [place] Urine Protein Urine Glucose (UA) Urine Ketones Urine Blood Urine Nitrate Urine Bilirubin Urine Urobilinogen Urine Leukocytes Urine RBC Ur Culture Indicated? 07/05/17 07/05/17 07/06/17 11:15 13:00 04:27 WBC 7.2 D RBC 3.12 L Hgb 10.2 L Hct 31.1 L MCV 99.7 MCH 33 MCHC 32.8 RDW 21.2 H Plt Count 102 L MPV 9.2 L Neut % (Auto) 86.5 H Lymph % (Auto) 2.8 L [place] % (Auto) 8.9 Eos % (Auto) 0.0 Baso % (Auto) 0.1 Neut # (Auto) 6.2 Lymph # (Auto) 0.2 L [place] # (Auto) 0.6 Eos # (Auto) 0.0 Baso # (Auto) 0.0 Total Counted 100 Immature Gran % 1.7 Nucleated RBC % 0.3 Immature Gran # 0.12 Segmented Neutrophils 85 Band Neutrophils 1 Lymphocytes 5 L Monocytes 9 Nucleated RBCs 1 Nucleated RBCs # 0.02 Platelet Estimate Decreased Immature Plt Fraction 1.2 Polychromasia Slight Hypochromasia 1+ Macrocytosis 1+ Tear Drop Cells Ovalocytes Slight Morphology Comment Sodium 142 Potassium 3.8 Chloride 107 Carbon Dioxide 28 Anion Gap 10.8 BUN 15 Creatinine 0.70 GFR Calculation 118 BUN/Creatinine Ratio 21.00 H Glucose 164 H Calculated Osmolality 287.1 Calcium 8.2 L Magnesium Total Bilirubin 0.60 AST 29 ALT 46 Alkaline Phosphatase 165 H Troponin I 0.036 B-Natriuretic Peptide Total Protein 5.1 L Albumin 2.8 L Globulin 2.3 Albumin/Globulin Ratio 1.2 Triglycerides Cholesterol LDL Cholesterol VLDL Cholesterol HDL Cholesterol Heart Disease Risk Ratio Free T4 TSH 3rd Generation 4.120 H Urine Color Colorless Urine Appearance Clear Urine pH 6.0 Ur Specific [place] 1.004 Urine Protein Negative Urine Glucose (UA) Negative Urine Ketones Negative Urine Blood Negative Urine Nitrate Negative Urine Bilirubin Negative Urine Urobilinogen < 2.0 H Urine Leukocytes Negative Urine RBC <1 Ur Culture Indicated? Not indicated 07/06/17 04:27 WBC RBC Hgb Hct MCV MCH MCHC RDW Plt Count MPV Neut % (Auto) Lymph % (Auto) [place] % (Auto) Eos % (Auto) Baso % (Auto) Neut # (Auto) Lymph # (Auto) [place] # (Auto) Eos # (Auto) Baso # (Auto) Total Counted Immature Gran % Nucleated RBC % Immature Gran # Segmented Neutrophils Band Neutrophils Lymphocytes Monocytes Nucleated RBCs Nucleated RBCs # Platelet Estimate Immature Plt Fraction Polychromasia Hypochromasia Macrocytosis Tear Drop Cells Ovalocytes Morphology Comment Sodium 143 Potassium 4.0 Chloride 109 H Carbon Dioxide 27 Anion Gap 11.0 BUN 12 Creatinine 0.40 L GFR Calculation 148 BUN/Creatinine Ratio 30.00 H Glucose 72 L Calculated Osmolality 283.0 Calcium 8.3 L Magnesium 2.4 Total Bilirubin AST ALT Alkaline Phosphatase Troponin I B-Natriuretic Peptide Total Protein Albumin Globulin Albumin/Globulin Ratio Triglycerides 108 Cholesterol 192 LDL Cholesterol 98.0 VLDL Cholesterol 21.6 HDL Cholesterol 75 H Heart Disease Risk Ratio 2.56 Free T4 TSH 3rd Generation Urine Color Urine Appearance Urine pH Ur Specific [place] Urine Protein Urine Glucose (UA) Urine Ketones Urine Blood Urine Nitrate Urine Bilirubin Urine Urobilinogen Urine Leukocytes Urine RBC Ur Culture Indicated? - EKG EKG results: interpreted by me, sinus rhythm
[2017-07-06 11:48] VITALS: BP 97/62
--- NOTE | 2017-07-06 13:53 | Discharge Summary ---
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 Rodrigues SUMMARY: Mr. Gonzalez is a 62 y/o WM with a history of recurrent malignancy that is being treated at [facility]. He also has a history of GERD, degenerative disk disease, hypertension, and PE. Mr. 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 This has caused partial paralysis with loss of bowel or bladder function. He has also unable to walk but is able to move his legs. He presented to our facility on 07/05/17 with tachycardia and heart rates in the 160s-170s. He subsequently underwent cardioversion with 2 consecutive shocks 50 J per shock. He successfully converted to normal sinus rhythm after the second shock. This is the fourth occasion in the past 2 weeks that this has occurred. We were called to admit him from the ER. He has previously had several episodes of SVT, and presented in what appears to be an atrial flutter rhythm. Following cardioversion, he was started on sotalol 80mg po bid. We have been monitoring his QTC interval and it has remained WNL. He is chronically anticoagulated with Pradaxa. He was also started on Vitamin C 1000mg PO BID. Mr. Gonzalez is followed by an Oncologist at [facility] in [place]. He has an appointment on Monday, July 10, 2017 to be evaluated by his physician for an upcoming stem cell transplant. Labwork and vital signs have remained stable thus far. He remains in a normal sinus rhythm with well controlled rate. He is tolerating the Sotalol s difficulty. QTC remains WNL. Mr. Gonzalez and his are anxious for discharge as he has an appointment to discuss a stem cell transplant with his oncologist on Sunday. At this time, he has met maximum benefit from hospitalization and will be discharged home in stable condition. Ideally, we would have him follow up with Dr. Rodrigues in 1-2 weeks with a repeat EKG; however, Mr. Gonzalez's informs me that if his oncologist decides to proceed with a stem cell transplant, this could happen as early as July 16. If that is the case, Mr. Gonzalez would be in the hospital for 30 days, then at home in isolation for 70 days. Mr. Gonzalez will need a repeat EKG in 1 week. This could be repeated at his follow up appointment on Sunday and faxed to our clinic offices at [phone] to the attention of Dr. Rodrigues. Diagnosis - Discharge Diagnosis (1) SVT (supraventricular tachycardia) Status: Resolved (2) Atrial flutter Status: Resolved (3) Hypertension Status: Chronic (4) Lymphoma malignant, large cell Status: Acute (5) Chronic anticoagulation Status: Chronic (6) History of pulmonary embolus (PE) Status: Chronic Specialty Discharge - Follow Up or Referrals Follow up with: Palmira Rodrigues DO [Physician] - 1 Week (If possible, have Mr. Gonzalez follow up with Dr. Rodrigues next week on Sunday, , or Sunday. If repeat EKG is not done at his appointment with his oncologist, this will need to be repeated the day of his appointment. ) Discharge Plan - Discharge Data Disposition: Disch To Home/Self Care Condition at Discharge: Stable Discharge Diet: low salt diet Activity: resume usual activities as tolerated Hygiene: no restrictions Contact your physician if you experience:: fever over 101, Redness or swelling, Nausea/Vomiting, Shortness of breath, Bleeding - Discharge Medications New Ascorbic Acid Tab [Vitamin C Tab] 1,000 mg PO BID #60 tablet Sotalol [Betapace] 80 mg PO BID #60 tablet Continue Finasteride [Proscar] 5 mg PO QAM Pantoprazole Tab [Protonix Tab] 40 mg PO QAM Zinc Oxide 20% Oint 1 applic TOP DAILY PRN PRN Reason: PROTECTION BARRIER Dabigatran [Pradaxa] 150 mg PO BID Allopurinol 300 mg PO QAM Zolpidem Tartrate [Ambien] 10 mg PO BEDTIME PRN PRN Reason: Insomnia oxyCODONE IR [Roxicodone] 2.5 mg PO Q4H PRN PRN Reason: Pain ALPRAZolam [Xanax] 0.25 - 0.5 mg PO Q4H PRN PRN Reason: Anxiety Tamsulosin [Flomax] 0.4 mg PO QAM predniSONE TAB [PredniSONE] 40 mg PO QAM Polyethylene Glycol Powder [Miralax] 17 gm PO DAILY PRN PRN Reason: Constipation Discontinued Metoprolol Succinate Xl [Toprol Xl] 25 mg PO QAM - Follow Up or Referral Follow Up: Palmira Rodrigues DO [Physician] - 1 Week (If possible, have Mr. Gonzalez follow up with Dr. Rodrigues next week on Sunday, , or Sunday. If repeat EKG is not done at his appointment with his oncologist, this will need to be repeated the day of his appointment. ) - Forms/Instructions Exam - Constitutional Vitals: Period Temp Pulse Resp BP Sys/Lutz Pulse Ox Last 24 Hr 96.4 F-97.8 F 70-92 12-18 97-125/61-78 96-100 Exam: General appearance: Appears well. Pleasant and cooperative. Overweight, no acute distress. Head exam: Present: normal inspection, normocephalic, atraumatic. Absent: hematoma, laceration Eye exam: Present: EOMI. Absent: conjunctival injection, nystagmus, periorbital swelling, scleral icterus, laceration to eyelids, jaundice Pupils: Present: PERRL. Absent: constricted, dilated, fixed, irregular, unequal ENT exam: Present: normal exam, normal external ear exam, mucous membranes moist. Neck exam: Present: normal inspection, midline trachea. Absent: masses, tenderness, carotid bruit Respiratory exam: Present: clear to auscultation bilaterally. Absent: accessory muscle use, chest wall tenderness, rales, rhonchi, wheezing. Cardiovascular exam: Present: regular rate and rhythm. Mild tachycardia. Absent : gallop, JVD, rubs, murmur GI/Abdominal exam: Present: normal bowel sounds, soft. Absent: distended, firm , tenderness. Extremities exam: Present: Impaired Gait, No Clubbing, No Cyanosis, Upper Extr. Pulses 2+, Lower Extr. Pulses 2+, No edema. 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 Capillary refill less than 3 seconds. Musculoskeletal: Present: No Fluid Collection, No Pain, Normal Range of Motion in BUE. Limited movement in BLE due to partial paralysis. Back exam: Present: normal inspection. Absent: muscle spasm, vertebral tenderness Neurological exam: Present: awake, alert, oriented X3, Moves all upper extremities well without hemiparesis or paralysis. Limited movement in BLE due to partial paralysis. Grossly intact without resting or essential tremor Psychiatric exam: Present: normal affect, normal mood Skin exam: Present: normal color, warm, dry, intact. Absent: cyanosis, diaphoretic, rash, urticaria Discharge Results Procedures and tests throughout hospitalization: Pending Orders 07/07/17 04:00 Basic Metabolic Panel IN AM Comp Blood Count Auto Diff IN AM Magnesium IN AM 07/08/17 04:00 Basic Metabolic Panel IN AM Comp Blood Count Auto Diff IN AM Magnesium IN AM 07/09/17 04:00 Basic Metabolic Panel IN AM Comp Blood Count Auto Diff IN AM Magnesium IN AM Labs on day of discharge: Labs from last 24 hours 07/06/17 07/06/17 04:27 04:27 WBC 7.2 D RBC 3.12 L Hgb 10.2 L Hct 31.1 L MCV 99.7 MCH 33 MCHC 32.8 RDW 21.2 H Plt Count 102 L MPV 9.2 L Neut % (Auto) 86.5 H Lymph % (Auto) 2.8 L [place] % (Auto) 8.9 Eos % (Auto) 0.0 Baso % (Auto) 0.1 Neut # (Auto) 6.2 Lymph # (Auto) 0.2 L [place] # (Auto) 0.6 Eos # (Auto) 0.0 Baso # (Auto) 0.0 Total Counted 100 Immature Gran % 1.7 Nucleated RBC % 0.3 Immature Gran # 0.12 Segmented Neutrophils 85 Band Neutrophils 1 Lymphocytes 5 L Monocytes 9 Nucleated RBCs 1 Nucleated RBCs # 0.02 Platelet Estimate Decreased Immature Plt Fraction 1.2 Polychromasia Slight Hypochromasia 1+ Macrocytosis 1+ Ovalocytes Slight Morphology Comment Sodium 143 Potassium 4.0 Chloride 109 H Carbon Dioxide 27 Anion Gap 11.0 BUN 12 Creatinine 0.40 L GFR Calculation 148 BUN/Creatinine Ratio 30.00 H Glucose 72 L Calculated Osmolality 283.0 Calcium 8.3 L Magnesium 2.4 Triglycerides 108 Cholesterol 192 LDL Cholesterol 98.0 VLDL Cholesterol 21.6 HDL Cholesterol 75 H Heart Disease Risk Ratio 2.56 DS: Provider Date of admission: 07/05/17 12:37 Primary care physician: Jonah Gibbons Attending physician on admission: Niles Cooley MD Consults: 07/05/17 16:20 Consult to Physician [CONS] Routine Comment: recurrent SVT Consulting Provider: James Nichols Discharging clinician: TAMEKA Staples
--- NOTE | 2017-07-06 14:25 | EKG Report ---
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
--- NOTE | 2017-07-08 13:00 | EKG Report ---
Please refer to the EKG image. Final interpretation is pending.
== END 2017-07-06 15:38 | disposition home or self-care (01) | DRG 309 ==
LOC: EDBD → EDUNIT# → N.ED 10:50 → N.EDINP 12:37 → N.TELES 16:03
PROVIDERS: ADMIT Internal Medicine Cardiovascular Disease; ATTEND Internal Medicine Cardiovascular Disease